=== PATIENT | male | born 1940 | race African-American/Black ===

== ENCOUNTER 2017-07-31 01:08 | Inpatient (IN) ==
[2017-07-31] MEDS ORDERED: methylPREDNISolone SOD SUC 125 MG/2 ML VIAL IV STA (01:31)
[2017-07-31] MEDS ORDERED: ALBUTEROL/IPRATROPIUM 3 ML NEB RESP TX STA (01:31)
[2017-07-31] MEDS ORDERED: methylPREDNISolone SOD SUC 125 MG/2 ML VIAL ONE (02:00)
[2017-07-31 03:21] LABS: Basophils % 0.4 % (0.0-0.8); Eosinophils # 0.1 10*3/uL (0.0-0.87); Eosinophils % 1.4 % (0.00-10.9); Hematocrit 38.6 VOL% (42.0-52.0); Hemoglobin 12.1 GM/DL (14.0-18.0); Immature Granulocytes % 0.4 %; Immature Granulocytes Absolute 0.02 #; Lymphocytes # 0.7 10*3/uL (1.4-4.0); Lymphocytes % 13.2 % (21.2-54.2); Mean Corpuscular HGB Conc 31.3 GM/DL (32-36); Mean Corpuscular Hemoglobin 27 PG (27-34); Mean Corpuscular Volume 86.9 FL (87-102); Mean Platelet Volume 9.4 FL (9.6-12.0); Monocytes # 0.3 10*3/uL (0.11-0.8); Monocytes % 5.9 % (1.7-12.7); Neutrophils # 3.9 10*3/uL (1.4-7.4); Neutrophils % 78.7 % (38.7-73.9); Platelet Count 267 T/CUMM (130-400); Red Blood Count 4.44 MC/CUMM (3.8-5.5); Red Cell Distribution Width 13.8 % (9.3-17.3); White Blood Count 4.9 T/CUMM (4-12)
[2017-07-31 03:42] LABS: Alanine Aminotransferase 28 U/L (16-61); Albumin 3.3 G/DL (3.4-5.0); Alkaline Phosphatase 137 U/L (45-117); Aspartate Amino Transferase 35 U/L (0-37); Bilirubin,Total < 0.39 MG/DL (0.2-1.0); Blood Urea Nitrogen 15 MG/DL (7-18); Calcium 9.2 MG/DL (8.5-10.1); Glucose 92 MG/DL (74-106); Osmolality,Calculated 277.5 MOS/KG (273-304); Potassium 4.5 MMOL/L (3.5-5.1); Sodium 139 MMOL/L (136-145); Troponin I Only 0.026 NG/ML (0.00-0.045)
[2017-07-31] MEDS ORDERED: SODIUM CHLORIDE 0.9% 500 ML IV ONE (06:23)
[2017-07-31] MEDS ORDERED: MORPHINE 2 MG/1 ML SYRINGE IV PRN (06:23)
[2017-07-31] MEDS ORDERED: ONDANSETRON 4 MG/2 ML VIAL IV PRN (06:23)
[2017-07-31] MEDS ORDERED: ALBUTEROL/IPRATROPIUM 3 ML NEB RESP TX PRN (06:23)
[2017-07-31] MEDS ORDERED: FUROSEMIDE 20 MG/2 ML VIAL IV ONE (06:23)
[2017-07-31] MEDS: ALBUTEROL/IPRATROPIUM 3 ML NEB RESP TX SCH ×4 (07:06→21:09)
[2017-07-31] MEDS: DONEPEZIL 10 MG TABLET PO SCH ×2 (08:51→09:02)
[2017-07-31] MEDS: MEGESTROL 400 MG/10 ML UDCUP PO SCH ×3 (08:51→22:22)
[2017-07-31] MEDS: TORSEMIDE 20 MG TABLET PO SCH ×2 (08:51→09:02)
[2017-07-31] MEDS: MAGNESIUM OXIDE 400 MG TABLET PO SCH ×2 (08:51→09:02)
[2017-07-31] MEDS: PANTOPRAZOLE 40 MG TABLET PO SCH ×2 (08:51→08:55)
[2017-07-31] MEDS: DOCUSATE SODIUM 100 MG CAPSULE PO SCH ×4 (08:51→22:25)
[2017-07-31] MEDS: SODIUM CHLORIDE 0.9% 1,000 ML IV SCH ×2 (08:53→22:22)
[2017-07-31] MEDS: ENOXAPARIN 40 MG/0.4 ML SYRINGE SUBCUT SCH (08:53)
[2017-07-31] MEDS: methylPREDNISolone SOD SUC 40 MG/1 ML VIAL IV SCH (12:40)
[2017-08-01] MEDS: ALBUTEROL/IPRATROPIUM 3 ML NEB RESP TX SCH ×4 (00:31→11:39)
[2017-08-01] MEDS: methylPREDNISolone SOD SUC 40 MG/1 ML VIAL IV SCH ×2 (01:11→11:50)
[2017-08-01] MEDS: ENOXAPARIN 40 MG/0.4 ML SYRINGE SUBCUT SCH (08:05)
[2017-08-01] MEDS: MEGESTROL 400 MG/10 ML UDCUP PO SCH (08:05)
[2017-08-01] MEDS: MAGNESIUM OXIDE 400 MG TABLET PO SCH (08:06)
[2017-08-01] MEDS: DONEPEZIL 10 MG TABLET PO SCH ×2 (08:06→08:25)
[2017-08-01] MEDS: PANTOPRAZOLE 40 MG TABLET PO SCH ×2 (08:06→08:25)
[2017-08-01] MEDS: DOCUSATE SODIUM 100 MG CAPSULE PO SCH ×2 (08:06→08:24)
[2017-08-01] MEDS: TORSEMIDE 20 MG TABLET PO SCH (08:06)
[2017-08-01 11:57] VITALS: BP 112/63
== END 2017-08-01 13:00 | DRG 192 ==
LOC: EDUNIT# → EDBD → N.ED 01:08 → N.EDINP 05:28 → N.TELES 06:23 → N.2E 19:50
PROVIDERS: ADMIT Internal Medicine Geriatric Medicine; ATTEND Internal Medicine Geriatric Medicine

== ENCOUNTER 2018-09-19 16:03 | Inpatient (IN) ==
[2018-09-19] MEDS ORDERED: methylPREDNISolone SOD SUC 125 MG/2 ML VIAL ONE (16:32)
[2018-09-19] MEDS ORDERED: methylPREDNISolone SOD SUC 125 MG/2 ML VIAL IV STA (16:44)
[2018-09-19] MEDS ORDERED: cefTRIAXone 1,000 MG in SODIUM CHLORIDE 0.9% 100 ML IV STA (16:44)
[2018-09-19] MEDS ORDERED: SODIUM CHLORIDE 0.9% 500 ML IV STA (16:44)
[2018-09-19] MEDS ORDERED: ONDANSETRON 4 MG/2 ML VIAL IV STA (16:44)
[2018-09-19 16:53] LABS: ABG Base Excess 1.8 MMOL/L (-2.5-2.5); ABG HCO3 25.6 MMOL/L (20-26); ABG Oxygen Saturation 80.7 % (95-100); ABG PH 7.294 (7.35-7.45); ABG PO2 52.2 MM HG (80-95)
[2018-09-19] MEDS ORDERED: ALBUTEROL NEB SOLN 5 MG/ML 20 ML/BOTTLE RESP TX SCH (17:00)
[2018-09-19 17:23] LABS: Basophils # 0.1 10*3/uL (0.0-0.2); Basophils % 0.3 % (0.0-0.8); Eosinophils # 0.1 10*3/uL (0.0-0.87); Eosinophils % 0.6 % (0.00-10.9); Hematocrit 42.9 VOL% (42.0-52.0); Immature Granulocytes Absolute 0.16 #; Lymphocytes # 3.5 10*3/uL (1.4-4.0); Lymphocytes % 22.5 % (21.2-54.2); Mean Corpuscular HGB Conc 30.3 GM/DL (32-36); Mean Corpuscular Hemoglobin 27 PG (27-34); Mean Corpuscular Volume 88.8 FL (87-102); Mean Platelet Volume 8.9 FL (9.6-12.0); Monocytes # 0.8 10*3/uL (0.11-0.8); Monocytes % 5.4 % (1.7-12.7); Neutrophils % 70.2 % (38.7-73.9); Platelet Count 416 T/CUMM (130-400); Red Blood Count 4.83 MC/CUMM (3.8-5.5); Red Cell Distribution Width 13.1 % (9.3-17.3); White Blood Count 15.7 T/CUMM (4-12)
[2018-09-19 17:35] LABS: PT Patient Result 11.1 SECS
[2018-09-19] MEDS ORDERED: ENOXAPARIN 100 MG/ML SYRINGE SUBCUT STA (17:36)
[2018-09-19] MEDS ORDERED: ONDANSETRON 4 MG/2 ML VIAL IV PRN (18:01)
[2018-09-19] MEDS ORDERED: ALBUTEROL/IPRATROPIUM 3 ML NEB RESP TX PRN (18:01)
[2018-09-19 18:09] LABS: Alanine Aminotransferase 10 U/L (16-61); Albumin 3.1 G/DL (3.4-5.0); Alkaline Phosphatase 124 U/L (45-117); Aspartate Amino Transferase 25 U/L (0-37); Bilirubin,Total < 0.39 MG/DL (0.2-1.0); Blood Urea Nitrogen 32 MG/DL (7-18); Calcium 9.7 MG/DL (8.5-10.1); Glucose 221 MG/DL (74-106); Osmolality,Calculated 286.8 MOS/KG (273-304); Potassium 3.2 MMOL/L (3.5-5.1); Sodium 137 MMOL/L (136-145); Total Protein 9.8 G/DL (6.4-8.3)
[2018-09-19] MEDS ORDERED: POTASSIUM CHLORIDE 20 MEQ TABLET PO PRN (18:15)
[2018-09-19] MEDS ORDERED: GLUCAGON 1 MG VIAL IM PRN (18:20)
[2018-09-19] MEDS ORDERED: DEXTROSE 50% 25 GM/50 ML VIAL IV PRN (18:20)
[2018-09-19 18:22] LABS: ABG Base Excess 0.7 MMOL/L (-2.5-2.5); ABG HCO3 24.9 MMOL/L (20-26); ABG Oxygen Saturation 90.9 % (95-100); ABG PCO2 56.7 MM HG (35-48); ABG PH 7.305 (7.35-7.45); ABG PO2 69.6 MM HG (80-95); ABG TCO2 25.4 MMOL/L (23-27)
[2018-09-19] MEDS ORDERED: ENOXAPARIN 40 MG/0.4 ML SYRINGE SUBCUT SCH (18:30)
[2018-09-19] MEDS ORDERED: SODIUM CHLORIDE 0.9% 1,000 ML IV ONE (19:09)
[2018-09-19] MEDS: ALBUTEROL/IPRATROPIUM 3 ML NEB RESP TX SCH (19:57)
[2018-09-19] MEDS ORDERED: LEVOFLOXACIN INJ 750 MG in PREMIX 1 EACH IV SCH (20:00)
[2018-09-19] MEDS: FLUTICASONE/SALMETEROL 250-50 DISKUS 14 DOSE INH SCH (20:59)
[2018-09-19] MEDS: ENOXAPARIN 60 MG/0.6 ML SYRINGE SUBCUT SCH (21:00)
[2018-09-19] MEDS: traZODone 50 MG TABLET PO SCH (21:00)
[2018-09-19] MEDS: SODIUM CHLORIDE 0.9% 1,000 ML IV SCH (21:01)
[2018-09-19] MEDS: MIRTAZAPINE 15 MG TABLET PO SCH (21:01)
[2018-09-19] MEDS: INSULIN REGULAR 100 UNIT/ML SUBCUT SCH (21:01)
[2018-09-19] MEDS: methylPREDNISolone SOD SUC 40 MG/1 ML VIAL IV SCH (21:02)
[2018-09-19] MEDS ORDERED: POTASSIUM CHLORIDE 20 MEQ/15 ML UDCUP PER TUBE PRN (22:24)
[2018-09-19 22:31] LABS: Apearance,Urine CLOUDY (Clear); Bilirubin,Urine Negative (Negative); Blood, Urine Negative (Negative); Glucose,Urine (UA) Negative (Negative); Hyaline Casts,Urine 1 /LPF (0-3); Ketones,Urine Negative (Negative); Nitrite,Urine Negative (Negative); Protein,Urine Negative; Urine Color Yellow (Yellow); Urine Specific Gravity 1.009 (1.001-1.035); Urine Urobilinogen < 2.0 EU/DL (0.2-1.0); WBC,Urine 2 /HPF (0-6)
[2018-09-20] MEDS: ALBUTEROL/IPRATROPIUM 3 ML NEB RESP TX SCH ×3 (01:32→13:59)
[2018-09-20 03:51] LABS: Basophils % 0.1 % (0.0-0.8); Hematocrit 33.7 VOL% (42.0-52.0); Hemoglobin 10.3 GM/DL (14.0-18.0); Immature Granulocytes % 0.5 %; Immature Granulocytes Absolute 0.05 #; Lymphocytes % 9.3 % (21.2-54.2); Mean Corpuscular HGB Conc 30.6 GM/DL (32-36); Mean Corpuscular Hemoglobin 27 PG (27-34); Mean Corpuscular Volume 88.5 FL (87-102); Mean Platelet Volume 9.1 FL (9.6-12.0); Monocytes # 0.2 10*3/uL (0.11-0.8); Monocytes % 1.9 % (1.7-12.7); Neutrophils # 9.3 10*3/uL (1.4-7.4); Neutrophils % 88.2 % (38.7-73.9); Platelet Count 282 T/CUMM (130-400); Red Blood Count 3.81 MC/CUMM (3.8-5.5); Red Cell Distribution Width 13.2 % (9.3-17.3); White Blood Count 10.5 T/CUMM (4-12)
[2018-09-20 04:16] LABS: Calcium 8.1 MG/DL (8.5-10.1); Osmolality,Calculated 283.4 MOS/KG (273-304); Potassium 4.3 MMOL/L (3.5-5.1); Thyroid Stimulating Hormone 0.225 uIU/ml (0.358-3.74)
[2018-09-20 04:45] LABS: Platelet Estimate Normal; Polychromasia Few
[2018-09-20] MEDS: CARBOXYMETHYLCELLULOSE 1% OPH SOLN BOTH EYES SCH ×2 (05:43→10:06)
[2018-09-20] MEDS: SODIUM CHLORIDE 0.9% 1,000 ML IV SCH ×5 (05:52→23:41)
[2018-09-20] MEDS: methylPREDNISolone SOD SUC 40 MG/1 ML VIAL IV SCH ×2 (05:52→13:31)
[2018-09-20] MEDS ORDERED: PANTOPRAZOLE 20 MG TABLET PO SCH (09:00)
[2018-09-20] MEDS: INSULIN REGULAR 100 UNIT/ML SUBCUT SCH ×4 (09:35→20:42)
[2018-09-20] MEDS: RIVASTIGMINE 4.6 MG/24 HR PATCH TRANSDERM SCH (10:03)
[2018-09-20] MEDS: TORSEMIDE 20 MG TABLET PO SCH (10:03)
[2018-09-20] MEDS: traZODone 50 MG TABLET PO SCH ×2 (10:03→20:41)
[2018-09-20] MEDS: MULTIVITAMIN (CENTRUM) TABLET PO SCH (10:04)
[2018-09-20] MEDS: ENOXAPARIN 60 MG/0.6 ML SYRINGE SUBCUT SCH (10:05)
[2018-09-20] MEDS: SERTRALINE 25 MG TABLET PO SCH (10:05)
[2018-09-20] MEDS: DONEPEZIL 10 MG TABLET PO SCH (10:05)
[2018-09-20] MEDS: PANTOPRAZOLE 40 MG TABLET PO SCH (10:05)
[2018-09-20] MEDS: MAGNESIUM OXIDE 400 MG TABLET PO SCH (10:05)
[2018-09-20] MEDS: FLUTICASONE/SALMETEROL 250-50 DISKUS 14 DOSE INH SCH ×2 (10:06→20:41)
[2018-09-20] MEDS ORDERED: ENOXAPARIN 40 MG/0.4 ML SYRINGE SUBCUT SCH (17:30)
[2018-09-20] MEDS: MIRTAZAPINE 15 MG TABLET PO SCH (20:42)
[2018-09-21] MEDS: methylPREDNISolone SOD SUC 40 MG/1 ML VIAL IV SCH ×3 (02:26→14:58)
[2018-09-21 05:10] LABS: Basophils % 0.1 % (0.0-0.8); Hematocrit 28.6 VOL% (42.0-52.0); Hemoglobin 8.5 GM/DL (14.0-18.0); Immature Granulocytes % 0.9 %; Immature Granulocytes Absolute 0.07 #; Lymphocytes # 0.8 10*3/uL (1.4-4.0); Lymphocytes % 9.9 % (21.2-54.2); Mean Corpuscular HGB Conc 29.7 GM/DL (32-36); Mean Corpuscular Hemoglobin 27 PG (27-34); Mean Corpuscular Volume 89.7 FL (87-102); Mean Platelet Volume 9.6 FL (9.6-12.0); Monocytes # 0.4 10*3/uL (0.11-0.8); Monocytes % 4.3 % (1.7-12.7); Neutrophils # 6.9 10*3/uL (1.4-7.4); Neutrophils % 84.8 % (38.7-73.9); Platelet Count 250 T/CUMM (130-400); Red Blood Count 3.19 MC/CUMM (3.8-5.5); Red Cell Distribution Width 13.2 % (9.3-17.3); White Blood Count 8.1 T/CUMM (4-12)
[2018-09-21 05:42] LABS: Calcium 8.1 MG/DL (8.5-10.1); Osmolality,Calculated 283.3 MOS/KG (273-304); Potassium 4.3 MMOL/L (3.5-5.1)
[2018-09-21] MEDS: CARBOXYMETHYLCELLULOSE 1% OPH SOLN BOTH EYES SCH ×3 (06:14→21:11)
[2018-09-21] MEDS: SODIUM CHLORIDE 0.9% 1,000 ML IV SCH ×3 (06:14→16:33)
[2018-09-21] MEDS: INSULIN REGULAR 100 UNIT/ML SUBCUT SCH ×4 (08:00→21:06)
[2018-09-21] MEDS: FLUTICASONE/SALMETEROL 250-50 DISKUS 14 DOSE INH SCH ×2 (09:45→21:09)
[2018-09-21] MEDS: RIVASTIGMINE 4.6 MG/24 HR PATCH TRANSDERM SCH (10:16)
[2018-09-21] MEDS: traZODone 50 MG TABLET PO SCH ×2 (10:16→21:10)
[2018-09-21] MEDS: ENOXAPARIN 40 MG/0.4 ML SYRINGE SUBCUT SCH (10:16)
[2018-09-21] MEDS: TORSEMIDE 20 MG TABLET PO SCH (10:17)
[2018-09-21] MEDS: MULTIVITAMIN (CENTRUM) TABLET PO SCH (10:18)
[2018-09-21] MEDS: SERTRALINE 25 MG TABLET PO SCH (10:18)
[2018-09-21] MEDS: MAGNESIUM OXIDE 400 MG TABLET PO SCH (10:18)
[2018-09-21] MEDS: DONEPEZIL 10 MG TABLET PO SCH (10:18)
[2018-09-21] MEDS: PANTOPRAZOLE 40 MG TABLET PO SCH (10:18)
[2018-09-21] MEDS: ALBUTEROL/IPRATROPIUM 3 ML NEB RESP TX SCH ×2 (12:27→20:22)
[2018-09-21] MEDS: LEVOFLOXACIN INJ 750 MG in PREMIX 1 EACH IV SCH (14:58)
[2018-09-21] MEDS: MIRTAZAPINE 15 MG TABLET PO SCH (21:11)
[2018-09-22] MEDS: ALBUTEROL/IPRATROPIUM 3 ML NEB RESP TX SCH ×4 (00:36→19:14)
[2018-09-22] MEDS: methylPREDNISolone SOD SUC 40 MG/1 ML VIAL IV SCH ×2 (01:42→14:19)
[2018-09-22 05:25] LABS: Hematocrit 27.1 VOL% (42.0-52.0); Hemoglobin 8.3 GM/DL (14.0-18.0); Immature Granulocytes % 1.2 %; Immature Granulocytes Absolute 0.09 #; Lymphocytes # 0.5 10*3/uL (1.4-4.0); Lymphocytes % 7.1 % (21.2-54.2); Mean Corpuscular HGB Conc 30.6 GM/DL (32-36); Mean Corpuscular Hemoglobin 27 PG (27-34); Mean Corpuscular Volume 87.7 FL (87-102); Mean Platelet Volume 9.5 FL (9.6-12.0); Monocytes # 0.2 10*3/uL (0.11-0.8); Neutrophils # 6.8 10*3/uL (1.4-7.4); Neutrophils % 88.7 % (38.7-73.9); Platelet Count 234 T/CUMM (130-400); Red Blood Count 3.09 MC/CUMM (3.8-5.5); Red Cell Distribution Width 13.3 % (9.3-17.3); White Blood Count 7.6 T/CUMM (4-12)
[2018-09-22 05:50] LABS: Osmolality,Calculated 280.4 MOS/KG (273-304); Potassium 3.7 MMOL/L (3.5-5.1)
[2018-09-22] MEDS ORDERED: MAGNESIUM SULF RIDER 2 GM in PREMIX 1 EACH IV ONE (08:11)
[2018-09-22] MEDS: INSULIN REGULAR 100 UNIT/ML SUBCUT SCH ×4 (09:22→21:06)
[2018-09-22] MEDS: ENOXAPARIN 40 MG/0.4 ML SYRINGE SUBCUT SCH (09:23)
[2018-09-22] MEDS: SERTRALINE 25 MG TABLET PO SCH (09:24)
[2018-09-22] MEDS: MAGNESIUM OXIDE 400 MG TABLET PO SCH (09:24)
[2018-09-22] MEDS: traZODone 50 MG TABLET PO SCH ×2 (09:24→21:10)
[2018-09-22] MEDS: MULTIVITAMIN (CENTRUM) TABLET PO SCH (09:24)
[2018-09-22] MEDS: DONEPEZIL 10 MG TABLET PO SCH (09:24)
[2018-09-22] MEDS: RIVASTIGMINE 4.6 MG/24 HR PATCH TRANSDERM SCH (09:24)
[2018-09-22] MEDS: PANTOPRAZOLE 40 MG TABLET PO SCH (09:25)
[2018-09-22] MEDS: FLUTICASONE/SALMETEROL 250-50 DISKUS 14 DOSE INH SCH ×2 (09:25→21:12)
[2018-09-22] MEDS: CARBOXYMETHYLCELLULOSE 1% OPH SOLN BOTH EYES SCH ×2 (11:45→21:07)
[2018-09-22] MEDS: LEVOFLOXACIN INJ 750 MG in PREMIX 1 EACH IV SCH (14:18)
[2018-09-22] MEDS: MIRTAZAPINE 15 MG TABLET PO SCH (21:10)
[2018-09-22] MEDS: SODIUM CHLORIDE 0.9% 1,000 ML IV SCH ×2 (22:12)
[2018-09-23] MEDS: ALBUTEROL/IPRATROPIUM 3 ML NEB RESP TX SCH ×5 (00:17→23:47)
[2018-09-23] MEDS: methylPREDNISolone SOD SUC 40 MG/1 ML VIAL IV SCH ×2 (01:52→15:36)
[2018-09-23] MEDS: ENOXAPARIN 40 MG/0.4 ML SYRINGE SUBCUT SCH (09:35)
[2018-09-23] MEDS: PANTOPRAZOLE 40 MG TABLET PO SCH (09:36)
[2018-09-23] MEDS: MULTIVITAMIN (CENTRUM) TABLET PO SCH (09:36)
[2018-09-23] MEDS: MAGNESIUM OXIDE 400 MG TABLET PO SCH (09:36)
[2018-09-23] MEDS: traZODone 50 MG TABLET PO SCH ×2 (09:36→22:27)
[2018-09-23] MEDS: RIVASTIGMINE 4.6 MG/24 HR PATCH TRANSDERM SCH (09:36)
[2018-09-23] MEDS: DONEPEZIL 10 MG TABLET PO SCH (09:36)
[2018-09-23] MEDS: SERTRALINE 25 MG TABLET PO SCH (09:36)
[2018-09-23] MEDS: FLUTICASONE/SALMETEROL 250-50 DISKUS 14 DOSE INH SCH ×2 (09:40→22:28)
[2018-09-23] MEDS: INSULIN REGULAR 100 UNIT/ML SUBCUT SCH ×4 (09:40→22:26)
[2018-09-23] MEDS: CARBOXYMETHYLCELLULOSE 1% OPH SOLN BOTH EYES SCH ×2 (09:43→22:28)
[2018-09-23] MEDS: LEVOFLOXACIN INJ 750 MG in PREMIX 1 EACH IV SCH (11:29)
[2018-09-23] MEDS: MIRTAZAPINE 15 MG TABLET PO SCH (22:27)
[2018-09-24] MEDS: methylPREDNISolone SOD SUC 40 MG/1 ML VIAL IV SCH ×2 (00:52→10:00)
[2018-09-24] MEDS: ALBUTEROL/IPRATROPIUM 3 ML NEB RESP TX SCH (07:14)
[2018-09-24] MEDS: FLUTICASONE/SALMETEROL 250-50 DISKUS 14 DOSE INH SCH (09:53)
[2018-09-24] MEDS: MAGNESIUM OXIDE 400 MG TABLET PO SCH (09:53)
[2018-09-24] MEDS: INSULIN REGULAR 100 UNIT/ML SUBCUT SCH ×2 (09:53→11:45)
[2018-09-24] MEDS: DONEPEZIL 10 MG TABLET PO SCH (09:53)
[2018-09-24] MEDS: SERTRALINE 25 MG TABLET PO SCH (09:53)
[2018-09-24] MEDS: PANTOPRAZOLE 40 MG TABLET PO SCH (09:53)
[2018-09-24] MEDS: ENOXAPARIN 40 MG/0.4 ML SYRINGE SUBCUT SCH (09:53)
[2018-09-24] MEDS: MULTIVITAMIN (CENTRUM) TABLET PO SCH (09:53)
[2018-09-24] MEDS: RIVASTIGMINE 4.6 MG/24 HR PATCH TRANSDERM SCH (09:54)
[2018-09-24] MEDS: LEVOFLOXACIN INJ 750 MG in PREMIX 1 EACH IV SCH (09:54)
[2018-09-24] MEDS: traZODone 50 MG TABLET PO SCH (09:55)
[2018-09-24] MEDS: CARBOXYMETHYLCELLULOSE 1% OPH SOLN BOTH EYES SCH (10:04)
[2018-09-24] MEDS ORDERED: CARBOXYMETHYLCELLULOSE 1% OPH SOLN BOTH EYES SCH (11:00)
[2018-09-24 12:00] VITALS: BP 125/75
[2018-09-25] MEDS ORDERED: LEVOFLOXACIN 750 MG TABLET PO SCH (09:00)
[2018-09-25] MEDS ORDERED: predniSONE 20 MG TABLET PO SCH (09:00)
== END 2018-09-24 12:36 | DRG 189 ==
LOC: EDBD → EDSEX → EDUNIT# → N.ED 16:03 → N.EDINP 18:01 → SUATTDRO 18:01 → N.CC 18:45 → N.2E 09-21 13:57
PROVIDERS: ADMIT Internal Medicine; ATTEND Internal Medicine

== ENCOUNTER 2018-10-15 11:08 | Inpatient (IN) ==
[2018-10-15] MEDS ORDERED: FUROSEMIDE 100 MG/10 ML VIAL IV STA (11:37)
[2018-10-15] MEDS ORDERED: cefTRIAXone 1,000 MG in SODIUM CHLORIDE 0.9% 100 ML IV STA (11:37)
[2018-10-15] MEDS ORDERED: SODIUM CHLORIDE 0.9% 500 ML IV STA (11:37)
[2018-10-15] MEDS ORDERED: methylPREDNISolone SOD SUC 125 MG/2 ML VIAL IV STA (11:37)
[2018-10-15] MEDS ORDERED: ALBUTEROL 2.5 MG/3 ML NEB RESP TX SCH (12:00)
[2018-10-15 12:07] LABS: ABG Base Excess 3.2 MMOL/L (-2.5-2.5); ABG HCO3 31.6 MMOL/L (20-26); ABG Oxygen Saturation 84.5 % (95-100); ABG PCO2 68.5 MM HG (35-48); ABG PH 7.282 (7.35-7.45); ABG PO2 54.8 MM HG (80-95); ABG TCO2 33.7 MMOL/L (23-27)
[2018-10-15 13:16] LABS: Bilirubin,Total 0.4 MG/DL (0.2-1.0); Calcium 9.4 MG/DL (8.5-10.1); Osmolality,Calculated 286.3 MOS/KG (273-304); Potassium 4.7 MMOL/L (3.5-5.1); Total Protein 8.2 G/DL (6.4-8.3)
[2018-10-15] MEDS ORDERED: SODIUM CHLORIDE 0.9% 1,000 ML IV STA (14:14)
[2018-10-15 14:21] LABS: Basophils % 0.4 % (0.0-0.8); Eosinophils % 0.1 % (0.00-10.9); Hematocrit 40.9 VOL% (42.0-52.0); Hemoglobin 11.9 GM/DL (14.0-18.0); Immature Granulocytes % 0.7 %; Immature Granulocytes Absolute 0.05 #; Lymphocytes # 0.6 10*3/uL (1.4-4.0); Lymphocytes % 7.6 % (21.2-54.2); Mean Corpuscular HGB Conc 29.1 GM/DL (32-36); Mean Corpuscular Hemoglobin 26 PG (27-34); Mean Corpuscular Volume 90.9 FL (87-102); Mean Platelet Volume 9.4 FL (9.6-12.0); Monocytes # 0.8 10*3/uL (0.11-0.8); Monocytes % 10.8 % (1.7-12.7); Neutrophils # 6.2 10*3/uL (1.4-7.4); Neutrophils % 80.4 % (38.7-73.9); Platelet Count 320 T/CUMM (130-400); Red Cell Distribution Width 14.6 % (9.3-17.3); White Blood Count 7.7 T/CUMM (4-12)
[2018-10-15] MEDS ORDERED: ENOXAPARIN 100 MG/ML SYRINGE SUBCUT STA (14:22)
[2018-10-15 14:27] LABS: Apearance,Urine CLEAR (Clear); Bacteria,Urine Occasional /HPF (Few); Bilirubin,Urine Negative (Negative); Blood, Urine Negative (Negative); Glucose,Urine (UA) Negative (Negative); Hyaline Casts,Urine 3 /LPF (0-3); Ketones,Urine Negative (Negative); Nitrite,Urine Negative (Negative); Protein,Urine Negative; RBC,Urine 1 /HPF (0-4); Urine Color Colorless (Yellow); Urine Specific Gravity 1.005 (1.001-1.035); Urine Urobilinogen < 2.0 EU/DL (0.2-1.0)
[2018-10-15] MEDS: PIPERACILLIN/TAZOBACTAM 3,375 MG in SODIUM CHLORIDE 0.9% 100 ML IV SCH ×2 (14:27→21:31)
[2018-10-15] MEDS ORDERED: DOCUSATE SODIUM 100 MG CAPSULE PO PRN (14:37)
[2018-10-15] MEDS ORDERED: ONDANSETRON 4 MG/2 ML VIAL IV PRN (14:37)
[2018-10-15] MEDS ORDERED: ALBUTEROL 2.5 MG/3 ML NEB RESP TX PRN (14:37)
[2018-10-15 14:43] LABS: Band Neutrophils 7 % (0-10); Lymphocytes 5 % (20-55); Segmented Neutrophils 77 % (50-85); Total Cells Counted 100
[2018-10-15 14:44] LABS: Platelet Estimate Adequate
[2018-10-15] MEDS ORDERED: ENOXAPARIN 40 MG/0.4 ML SYRINGE SUBCUT SCH (15:00)
[2018-10-15] MEDS ORDERED: DEXTROSE 50% 25 GM/50 ML SYRINGE IV PRN (15:46)
[2018-10-15] MEDS ORDERED: GLUCAGON 1 MG VIAL IM PRN (15:46)
[2018-10-15] MEDS: PANTOPRAZOLE 40 MG VIAL IV SCH (17:27)
[2018-10-15] MEDS: INSULIN LISPRO 100 UNIT/ML SUBCUT SCH ×2 (17:28→21:28)
[2018-10-15] MEDS: SODIUM CHLORIDE 0.45% 1,000 ML IV SCH (17:28)
[2018-10-15] MEDS: ALBUTEROL/IPRATROPIUM 3 ML NEB RESP TX SCH (19:02)
[2018-10-15] MEDS: methylPREDNISolone SOD SUC 40 MG/1 ML VIAL IV SCH (21:24)
[2018-10-15] MEDS: MIRTAZAPINE 15 MG TABLET PO SCH (21:27)
[2018-10-15] MEDS: FLUTICASONE/SALMETEROL 250-50 DISKUS 14 DOSE INH SCH (21:30)
[2018-10-15] MEDS: CARBOXYMETHYLCELLULOSE 1% OPH SOLN BOTH EYES SCH (22:30)
[2018-10-16] MEDS: ALBUTEROL/IPRATROPIUM 3 ML NEB RESP TX SCH ×4 (00:57→19:39)
[2018-10-16 03:47] LABS: Basophils % 0.1 % (0.0-0.8); Immature Granulocytes % 0.7 %; Immature Granulocytes Absolute 0.05 #; Lymphocytes % 14.4 % (21.2-54.2); Mean Corpuscular HGB Conc 29.4 GM/DL (32-36); Mean Corpuscular Hemoglobin 26 PG (27-34); Mean Corpuscular Volume 88.5 FL (87-102); Mean Platelet Volume 9.3 FL (9.6-12.0); Monocytes # 0.2 10*3/uL (0.11-0.8); Neutrophils # 5.5 10*3/uL (1.4-7.4); Neutrophils % 81.8 % (38.7-73.9); Platelet Count 285 T/CUMM (130-400); Red Blood Count 3.84 MC/CUMM (3.8-5.5); Red Cell Distribution Width 14.6 % (9.3-17.3); White Blood Count 6.7 T/CUMM (4-12)
[2018-10-16 04:05] LABS: Albumin 2.3 G/DL (3.4-5.0); Bilirubin,Total 0.5 MG/DL (0.2-1.0); Calcium 8.8 MG/DL (8.5-10.1); Potassium 3.9 MMOL/L (3.5-5.1); Total Protein 7.2 G/DL (6.4-8.3)
[2018-10-16 04:13] LABS: Band Neutrophils 3 % (0-10); Hypochromasia 1+; Lymphocytes 16 % (20-55); Platelet Estimate Adequate; Segmented Neutrophils 77 % (50-85); Total Cells Counted 100
[2018-10-16 04:35] LABS: ABG Base Excess 4.4 MMOL/L (-2.5-2.5); ABG HCO3 28.3 MMOL/L (20-26); ABG Oxygen Saturation 97.2 % (95-100); ABG PCO2 52.5 MM HG (35-48); ABG PH 7.374 (7.35-7.45); ABG PO2 91.4 MM HG (80-95); ABG TCO2 27.8 MMOL/L (23-27); Allen Test Positive; Pt O2 Delivery Device Other
[2018-10-16] MEDS: methylPREDNISolone SOD SUC 40 MG/1 ML VIAL IV SCH ×3 (05:26→21:40)
[2018-10-16] MEDS: PIPERACILLIN/TAZOBACTAM 3,375 MG in SODIUM CHLORIDE 0.9% 100 ML IV SCH ×3 (05:30→21:43)
[2018-10-16] MEDS: SODIUM CHLORIDE 0.45% 1,000 ML IV SCH ×3 (06:38→21:39)
[2018-10-16] MEDS: INSULIN LISPRO 100 UNIT/ML SUBCUT SCH ×4 (08:18→21:43)
[2018-10-16] MEDS: TORSEMIDE 20 MG TABLET PO SCH (10:04)
[2018-10-16] MEDS: SERTRALINE 25 MG TABLET PO SCH (10:06)
[2018-10-16] MEDS: DONEPEZIL 10 MG TABLET PO SCH (10:06)
[2018-10-16] MEDS: MAGNESIUM OXIDE 400 MG TABLET PO SCH (10:06)
[2018-10-16] MEDS: MULTIVITAMIN (CENTRUM) TABLET PO SCH (10:07)
[2018-10-16] MEDS: RIVASTIGMINE 4.6 MG/24 HR PATCH TRANSDERM SCH (10:07)
[2018-10-16] MEDS: CARBOXYMETHYLCELLULOSE 1% OPH SOLN BOTH EYES SCH ×2 (10:08→21:43)
[2018-10-16] MEDS: FLUTICASONE/SALMETEROL 250-50 DISKUS 14 DOSE INH SCH ×2 (10:08→21:40)
[2018-10-16] MEDS: PANTOPRAZOLE 40 MG VIAL IV SCH (14:11)
[2018-10-16] MEDS ORDERED: ENOXAPARIN 40 MG/0.4 ML SYRINGE SUBCUT SCH (15:00)
[2018-10-16] MEDS: MIRTAZAPINE 15 MG TABLET PO SCH (21:41)
[2018-10-17] MEDS: ALBUTEROL/IPRATROPIUM 3 ML NEB RESP TX SCH ×3 (01:26→13:15)
[2018-10-17] MEDS: methylPREDNISolone SOD SUC 40 MG/1 ML VIAL IV SCH (05:58)
[2018-10-17] MEDS: PIPERACILLIN/TAZOBACTAM 3,375 MG in SODIUM CHLORIDE 0.9% 100 ML IV SCH (05:58)
[2018-10-17] MEDS: INSULIN LISPRO 100 UNIT/ML SUBCUT SCH ×2 (09:20→11:41)
[2018-10-17] MEDS: MAGNESIUM OXIDE 400 MG TABLET PO SCH (09:59)
[2018-10-17] MEDS: FLUTICASONE/SALMETEROL 250-50 DISKUS 14 DOSE INH SCH (09:59)
[2018-10-17] MEDS: SERTRALINE 25 MG TABLET PO SCH (09:59)
[2018-10-17] MEDS: TORSEMIDE 20 MG TABLET PO SCH (09:59)
[2018-10-17] MEDS: RIVASTIGMINE 4.6 MG/24 HR PATCH TRANSDERM SCH (10:01)
[2018-10-17] MEDS: MULTIVITAMIN (CENTRUM) TABLET PO SCH (10:01)
[2018-10-17] MEDS: DONEPEZIL 10 MG TABLET PO SCH (10:01)
[2018-10-17] MEDS: CARBOXYMETHYLCELLULOSE 1% OPH SOLN BOTH EYES SCH (10:07)
[2018-10-17] MEDS: SODIUM CHLORIDE 0.45% 1,000 ML IV SCH ×2 (10:14→10:41)
[2018-10-17 13:45] VITALS: BP 90/48
[2018-10-17] MEDS ORDERED: CYPROHEPTADINE 4 MG TABLET PO SCH (21:00)
[2018-10-17] MEDS ORDERED: DOXYCYCLINE HYCLATE 100 MG CAPSULE PO SCH (21:00)
[2018-10-18] MEDS ORDERED: ROFLUMILAST 500 MCG TABLET PO SCH (09:00)
[2018-10-18] MEDS ORDERED: predniSONE 20 MG TABLET PO SCH (09:00)
== END 2018-10-17 16:00 | DRG 190 ==
LOC: EDUNIT# → N.ED 11:08 → SUATTDRO 14:37 → N.EDINP 14:37 → N.CC 15:30
PROVIDERS: ADMIT Internal Medicine; ATTEND Hospitalist

== ENCOUNTER 2018-11-16 01:55 | Inpatient (IN) ==
[2018-11-16 03:04] LABS: Immature Granulocytes % 0.3 %; Immature Granulocytes Absolute 0.02 #; Mean Corpuscular HGB Conc 29.5 GM/DL (32-36); Red Cell Distribution Width 16.8 % (9.3-17.3)
[2018-11-16 03:10] LABS: Albumin 2.8 G/DL (3.4-5.0); Bilirubin,Total 0.4 MG/DL (0.2-1.0); Calcium 9.1 MG/DL (8.5-10.1); Osmolality,Calculated 282.3 MOS/KG (273-304); PT Patient Result 10.6 SECS; Total Protein 7.3 G/DL (6.4-8.3)
[2018-11-16] MEDS ORDERED: SODIUM CHLORIDE 0.9% 1,000 ML IV STA (03:12)
[2018-11-16] MEDS ORDERED: methylPREDNISolone SOD SUC 125 MG/2 ML VIAL IV STA (03:22)
[2018-11-16] MEDS ORDERED: ALBUTEROL/IPRATROPIUM 3 ML NEB RESP TX STA (03:22)
[2018-11-16] MEDS ORDERED: VANCOMYCIN INJ 1,000 MG in SODIUM CHLORIDE 0.9% 250 ML IV STA ×2 (03:22→03:27)
[2018-11-16] MEDS ORDERED: CEFEPIME 1,000 MG in SODIUM CHLORIDE 0.9% 100 ML IV STA (03:23)
[2018-11-16] MEDS ORDERED: SODIUM CHLORIDE 0.9% 2,000 ML IV STA (03:23)
[2018-11-16 03:27] LABS: Basophils % 0.4 % (0.0-0.8); Hematocrit 42.7 VOL% (42.0-52.0); Hemoglobin 12.6 GM/DL (14.0-18.0); Lymphocytes # 0.3 10*3/uL (1.4-4.0); Lymphocytes % 4.5 % (21.2-54.2); Mean Corpuscular Hemoglobin 26 PG (27-34); Monocytes # 0.2 10*3/uL (0.11-0.8); Monocytes % 3.1 % (1.7-12.7); Neutrophils # 6.9 10*3/uL (1.4-7.4); Neutrophils % 91.7 % (38.7-73.9); Platelet Count 326 T/CUMM (130-400); White Blood Count 7.5 T/CUMM (4-12)
[2018-11-16 04:32] LABS: Band Neutrophils 9 % (0-10); Lymphocytes 6 % (20-55); Metamyelocytes 1 %; Platelet Estimate Normal; Segmented Neutrophils 81 % (50-85); Total Cells Counted 100
[2018-11-16] MEDS ORDERED: ONDANSETRON 4 MG/2 ML VIAL IV PRN (04:49)
[2018-11-16] MEDS ORDERED: ALBUTEROL 2.5 MG/3 ML NEB RESP TX PRN (04:49)
[2018-11-16] MEDS ORDERED: LEVALBUTEROL 0.63 MG/3 ML NEB RESP TX PRN (05:01)
[2018-11-16] MEDS ORDERED: ONDANSETRON ODT 4 MG TABLET PO PRN (05:02)
[2018-11-16] MEDS ORDERED: DOCUSATE SODIUM 100 MG CAPSULE PO PRN (05:02)
[2018-11-16] MEDS ORDERED: FUROSEMIDE 40 MG/4 ML VIAL ONE (06:37)
[2018-11-16] MEDS ORDERED: FUROSEMIDE 40 MG/4 ML VIAL IV ONE (06:38)
[2018-11-16] MEDS: ENOXAPARIN 40 MG/0.4 ML SYRINGE SUBCUT SCH (06:40)
[2018-11-16] MEDS: PANTOPRAZOLE 40 MG VIAL IV SCH (06:40)
[2018-11-16] MEDS: MEROPENEM 1,000 MG in SODIUM CHLORIDE 0.9% 100 ML IV SCH ×3 (06:41→20:46)
[2018-11-16] MEDS: LEVOFLOXACIN INJ 750 MG in PREMIX 1 EACH IV SCH (06:41)
[2018-11-16] MEDS: LEVALBUTEROL 1.25 MG/3 ML NEB RESP TX SCH ×3 (06:56→19:35)
[2018-11-16 08:14] LABS: ABG Base Excess 6.7 MMOL/L (-2.5-2.5); ABG HCO3 31.8 MMOL/L (20-26); ABG Oxygen Saturation 97.9 % (95-100); ABG PCO2 47.9 MM HG (35-48); ABG PO2 105.7 MM HG (80-95); ABG TCO2 33.3 MMOL/L (23-27); Allen Test Positive
[2018-11-16] MEDS ORDERED: ETOMIDATE 20 MG/10 ML VIAL IV ONE ×2 (08:35)
[2018-11-16] MEDS ORDERED: SUCCINYLCHOLINE 200 MG/10 ML VIAL ONE (08:36)
[2018-11-16] MEDS ORDERED: SUCCINYLCHOLINE 200 MG/10 ML VIAL IV ONE (08:38)
[2018-11-16] MEDS ORDERED: PROPOFOL 1,000 MG/100 ML BOTTLE IV ONE (08:57)
[2018-11-16] MEDS: NOREPINEPHRINE 8 MG in SODIUM CHLORIDE 0.9% 234 ML IV PRN ×2 (09:00→16:37)
[2018-11-16] MEDS ORDERED: LACTATED RINGERS 1,000 ML IV ONE (09:00)
[2018-11-16] MEDS: PROPOFOL 1,000 MG/100 ML BOTTLE IV SCH (09:00)
[2018-11-16] MEDS ORDERED: TORSEMIDE 20 MG TABLET PO SCH (09:00)
[2018-11-16] MEDS ORDERED: NOREPINEPHRINE 4 MG/4 ML VIAL IV ONE (09:48)
[2018-11-16 10:19] LABS: Allen Test Positive; Pt O2 Delivery Device Ventilator
[2018-11-16 10:20] LABS: ABG Base Excess 1.4 MMOL/L (-2.5-2.5); ABG HCO3 25.7 MMOL/L (20-26); ABG PCO2 40.6 MM HG (35-48); ABG PH 7.415 (7.35-7.45); ABG TCO2 23.9 MMOL/L (23-27)
[2018-11-16 13:42] LABS: Apearance,Urine CLOUDY (Clear); Bilirubin,Urine Negative (Negative); Blood, Urine Small mg/dL (Negative); Glucose,Urine (UA) Negative (Negative); Hyaline Casts,Urine 33 /LPF (0-3); Ketones,Urine 5 mg/dL (Negative); Mucus,Urine Occasional /LPF (Occasional); Nitrite,Urine Negative (Negative); Protein,Urine Negative; RBC,Urine 1 /HPF (0-4); Squamous Epithelial Cell,Urine Occasional /HPF (0-10); Urine Color Yellow (Yellow); Urine Specific Gravity 1.009 (1.001-1.035); Urine Urobilinogen < 2.0 EU/DL (0.2-1.0); WBC,Urine 1 /HPF (0-6)
[2018-11-16] MEDS: FLUTICASONE/SALMETEROL 250-50 DISKUS 14 DOSE INH SCH ×2 (14:07→20:56)
[2018-11-16] MEDS: DONEPEZIL 10 MG TABLET PO SCH (14:08)
[2018-11-16] MEDS: ROFLUMILAST 500 MCG TABLET PO SCH (14:08)
[2018-11-16] MEDS: MULTIVITAMIN (CENTRUM) TABLET PO SCH (14:08)
[2018-11-16] MEDS: MAGNESIUM OXIDE 400 MG TABLET PO SCH (14:09)
[2018-11-16] MEDS: CARBOXYMETHYLCELLULOSE 1% OPH SOLN BOTH EYES SCH ×2 (14:10→20:46)
[2018-11-16] MEDS: CYPROHEPTADINE 4 MG TABLET PO SCH ×2 (14:10→20:46)
[2018-11-16] MEDS: SERTRALINE 25 MG TABLET PO SCH (14:11)
[2018-11-16] MEDS: methylPREDNISolone SOD SUC 40 MG/1 ML VIAL IV SCH ×2 (14:38→20:45)
[2018-11-16] MEDS: RIVASTIGMINE 4.6 MG/24 HR PATCH TRANSDERM SCH (14:41)
[2018-11-16] MEDS ORDERED: PHENYLEPHRINE DRIP 40 MG/250 ML PREMIX IV PRN (18:28)
[2018-11-16] MEDS: MIRTAZAPINE 15 MG TABLET PO SCH (20:46)
[2018-11-17] MEDS: LEVALBUTEROL 1.25 MG/3 ML NEB RESP TX SCH ×4 (00:45→19:10)
[2018-11-17] MEDS: NOREPINEPHRINE 8 MG in SODIUM CHLORIDE 0.9% 234 ML IV PRN ×3 (01:50→22:55)
[2018-11-17] MEDS ORDERED: SODIUM CHLORIDE 0.45% 1,000 ML IV SCH (04:30)
[2018-11-17] MEDS: PANTOPRAZOLE 40 MG VIAL IV SCH (04:31)
[2018-11-17] MEDS: ENOXAPARIN 40 MG/0.4 ML SYRINGE SUBCUT SCH (04:31)
[2018-11-17] MEDS: methylPREDNISolone SOD SUC 40 MG/1 ML VIAL IV SCH ×3 (04:31→21:09)
[2018-11-17] MEDS: MEROPENEM 1,000 MG in SODIUM CHLORIDE 0.9% 100 ML IV SCH ×3 (04:32→21:09)
[2018-11-17 05:03] LABS: ABG Base Excess 3.9 MMOL/L (-2.5-2.5); ABG HCO3 27.9 MMOL/L (20-26); ABG Oxygen Saturation 99.6 % (95-100); ABG PCO2 39.1 MM HG (35-48); ABG PH 7.462 (7.35-7.45); ABG TCO2 25.5 MMOL/L (23-27); Allen Test Positive; Pt O2 Delivery Device Ventilator
[2018-11-17 06:03] LABS: Basophils # 0.1 10*3/uL (0.0-0.2); Basophils % 0.6 % (0.0-0.8); Hematocrit 29.5 VOL% (42.0-52.0); Hemoglobin 8.9 GM/DL (14.0-18.0); Immature Granulocytes % 3.6 %; Lymphocytes # 0.7 10*3/uL (1.4-4.0); Lymphocytes % 4.3 % (21.2-54.2); Mean Corpuscular HGB Conc 30.2 GM/DL (32-36); Mean Corpuscular Hemoglobin 27 PG (27-34); Mean Corpuscular Volume 88.6 FL (87-102); Mean Platelet Volume 9.7 FL (9.6-12.0); Monocytes # 0.9 10*3/uL (0.11-0.8); Monocytes % 5.4 % (1.7-12.7); Neutrophils # 14.3 10*3/uL (1.4-7.4); Neutrophils % 86.1 % (38.7-73.9); Platelet Count 261 T/CUMM (130-400); Red Blood Count 3.33 MC/CUMM (3.8-5.5); Red Cell Distribution Width 17.1 % (9.3-17.3); White Blood Count 16.6 T/CUMM (4-12)
[2018-11-17 06:14] LABS: Albumin 1.7 G/DL (3.4-5.0); Bilirubin,Total 0.4 MG/DL (0.2-1.0); Calcium 8.6 MG/DL (8.5-10.1); Osmolality,Calculated 290.7 MOS/KG (273-304); Potassium 3.4 MMOL/L (3.5-5.1); Total Protein 5.8 G/DL (6.4-8.3)
[2018-11-17] MEDS: LEVOFLOXACIN INJ 750 MG in PREMIX 1 EACH IV SCH (06:35)
[2018-11-17 06:41] LABS: Basophils # 0.1 10*3/uL (0.0-0.2); Basophils % 0.8 % (0.0-0.8); Hematocrit 29.1 VOL% (42.0-52.0); Hemoglobin 8.9 GM/DL (14.0-18.0); Immature Granulocytes % 2.2 %; Immature Granulocytes Absolute 0.36 #; Lymphocytes # 0.6 10*3/uL (1.4-4.0); Lymphocytes % 3.6 % (21.2-54.2); Mean Corpuscular HGB Conc 30.6 GM/DL (32-36); Mean Corpuscular Hemoglobin 27 PG (27-34); Mean Corpuscular Volume 87.9 FL (87-102); Mean Platelet Volume 9.3 FL (9.6-12.0); Monocytes # 0.8 10*3/uL (0.11-0.8); Monocytes % 4.8 % (1.7-12.7); Neutrophils # 14.7 10*3/uL (1.4-7.4); Neutrophils % 88.6 % (38.7-73.9); Platelet Count 259 T/CUMM (130-400); Red Blood Count 3.31 MC/CUMM (3.8-5.5); Red Cell Distribution Width 17.1 % (9.3-17.3); White Blood Count 16.6 T/CUMM (4-12)
[2018-11-17 06:43] LABS: Anisocytosis Slight; Band Neutrophils 58 % (0-10); Lymphocytes 4 % (20-55); Macrocytosis Slight; Platelet Estimate Normal; Segmented Neutrophils 37 % (50-85); Total Cells Counted 100
[2018-11-17 07:01] LABS: Calcium 8.5 MG/DL (8.5-10.1); Osmolality,Calculated 290.7 MOS/KG (273-304); Potassium 3.4 MMOL/L (3.5-5.1)
[2018-11-17 07:05] LABS: Band Neutrophils 44 % (0-10); Lymphocytes 2 % (20-55); Nucleated Red Blood Cells 1 (0-5); Platelet Estimate Normal; Segmented Neutrophils 51 % (50-85); Total Cells Counted 100
[2018-11-17 07:06] LABS: Anisocytosis Slight; Macrocytosis Slight
[2018-11-17] MEDS: SERTRALINE 25 MG TABLET PO SCH (08:24)
[2018-11-17] MEDS: ROFLUMILAST 500 MCG TABLET PO SCH (08:25)
[2018-11-17] MEDS: CYPROHEPTADINE 4 MG TABLET PO SCH ×2 (08:25→21:08)
[2018-11-17] MEDS: DONEPEZIL 10 MG TABLET PO SCH (08:25)
[2018-11-17] MEDS: RIVASTIGMINE 4.6 MG/24 HR PATCH TRANSDERM SCH (08:26)
[2018-11-17] MEDS: MULTIVITAMIN (CENTRUM) TABLET PO SCH (08:26)
[2018-11-17] MEDS: MAGNESIUM OXIDE 400 MG TABLET PO SCH (08:26)
[2018-11-17] MEDS: CARBOXYMETHYLCELLULOSE 1% OPH SOLN BOTH EYES SCH ×2 (08:27→21:45)
[2018-11-17] MEDS: FLUTICASONE/SALMETEROL 250-50 DISKUS 14 DOSE INH SCH ×2 (08:42→21:39)
[2018-11-17] MEDS: LACTATED RINGERS 1,000 ML IV SCH ×3 (08:49→20:10)
[2018-11-17] MEDS: PROPOFOL 1,000 MG/100 ML BOTTLE IV SCH ×2 (10:12→19:45)
[2018-11-17] MEDS ORDERED: LACTATED RINGERS 500 ML IV ONE (11:11)
[2018-11-17] MEDS ORDERED: POTASSIUM CHLORIDE 20 MEQ/15 ML UDCUP PO ONE (11:18)
[2018-11-17] MEDS: MIRTAZAPINE 15 MG TABLET PO SCH (21:09)
[2018-11-18] MEDS: LEVALBUTEROL 1.25 MG/3 ML NEB RESP TX SCH ×4 (01:00→19:38)
[2018-11-18] MEDS: LACTATED RINGERS 1,000 ML IV SCH ×4 (02:04→23:45)
[2018-11-18] MEDS: PANTOPRAZOLE 40 MG VIAL IV SCH (04:35)
[2018-11-18] MEDS: ENOXAPARIN 40 MG/0.4 ML SYRINGE SUBCUT SCH (04:35)
[2018-11-18] MEDS: methylPREDNISolone SOD SUC 40 MG/1 ML VIAL IV SCH ×3 (04:35→20:57)
[2018-11-18 04:44] LABS: ABG Base Excess 5.6 MMOL/L (-2.5-2.5); ABG HCO3 29.1 MMOL/L (20-26); ABG Oxygen Saturation 96.8 % (95-100); ABG PCO2 37.8 MM HG (35-48); ABG PH 7.504 (7.35-7.45); ABG PO2 88.2 MM HG (80-95); ABG TCO2 30.2 MMOL/L (23-27); Allen Test Positive; Pt O2 Delivery Device Ventilator
[2018-11-18] MEDS: MEROPENEM 1,000 MG in SODIUM CHLORIDE 0.9% 100 ML IV SCH ×3 (05:11→20:57)
[2018-11-18 05:55] LABS: Hematocrit 26.8 VOL% (42.0-52.0); Hemoglobin 8.1 GM/DL (14.0-18.0); Mean Corpuscular HGB Conc 30.2 GM/DL (32-36); Mean Corpuscular Hemoglobin 26 PG (27-34); Mean Corpuscular Volume 86.7 FL (87-102); Platelet Count 242 T/CUMM (130-400); Red Blood Count 3.09 MC/CUMM (3.8-5.5); Red Cell Distribution Width 17.2 % (9.3-17.3); White Blood Count 17.1 T/CUMM (4-12)
[2018-11-18 05:56] LABS: Basophils # 0.1 10*3/uL (0.0-0.2); Basophils % 0.4 % (0.0-0.8); Immature Granulocytes % 0.5 %; Immature Granulocytes Absolute 0.09 #; Lymphocytes # 0.5 10*3/uL (1.4-4.0); Monocytes # 0.6 10*3/uL (0.11-0.8); Monocytes % 3.6 % (1.7-12.7); NRBC # 0.03 10*3/uL; Neutrophils # 15.8 10*3/uL (1.4-7.4); Neutrophils % 92.5 % (38.7-73.9)
[2018-11-18 06:15] LABS: Calcium 8.4 MG/DL (8.5-10.1); Osmolality,Calculated 292.7 MOS/KG (273-304); Potassium 3.4 MMOL/L (3.5-5.1)
[2018-11-18 07:11] LABS: Anisocytosis 1+; Band Neutrophils 23 % (0-10); Hypochromasia Slight; Lymphocytes 1 % (20-55); Platelet Estimate Normal; Segmented Neutrophils 72 % (50-85); Total Cells Counted 100
[2018-11-18] MEDS: LEVOFLOXACIN INJ 750 MG in PREMIX 1 EACH IV SCH (07:18)
[2018-11-18] MEDS ORDERED: POTASSIUM CHLORIDE 20 MEQ/15 ML UDCUP PER TUBE PRN (07:54)
[2018-11-18] MEDS ORDERED: DEXTROSE 50% 25 GM/50 ML SYRINGE IV PRN (07:56)
[2018-11-18] MEDS ORDERED: GLUCAGON 1 MG VIAL IM PRN (07:56)
[2018-11-18] MEDS: CYPROHEPTADINE 4 MG TABLET PO SCH ×2 (09:02→20:57)
[2018-11-18] MEDS: ROFLUMILAST 500 MCG TABLET PO SCH (09:02)
[2018-11-18] MEDS: DONEPEZIL 10 MG TABLET PO SCH (09:02)
[2018-11-18] MEDS: RIVASTIGMINE 4.6 MG/24 HR PATCH TRANSDERM SCH (09:02)
[2018-11-18] MEDS: SERTRALINE 25 MG TABLET PO SCH (09:02)
[2018-11-18] MEDS: CARBOXYMETHYLCELLULOSE 1% OPH SOLN BOTH EYES SCH ×2 (09:02→20:57)
[2018-11-18] MEDS: MULTIVITAMIN (CENTRUM) TABLET PO SCH (09:02)
[2018-11-18] MEDS: MAGNESIUM OXIDE 400 MG TABLET PO SCH (09:02)
[2018-11-18] MEDS: FLUTICASONE/SALMETEROL 250-50 DISKUS 14 DOSE INH SCH ×2 (09:07→20:57)
[2018-11-18] MEDS ORDERED: LORazepam 2 MG/1 ML VIAL ONE (09:35)
[2018-11-18] MEDS ORDERED: LORazepam 2 MG/1 ML VIAL IV ONE (09:54)
[2018-11-18] MEDS: INSULIN LISPRO 100 UNIT/ML SUBCUT SCH ×2 (15:09→18:53)
[2018-11-18] MEDS: VANCOMYCIN INJ 750 MG in SODIUM CHLORIDE 0.9% 250 ML IV SCH (15:10)
[2018-11-18] MEDS: PROPOFOL 1,000 MG/100 ML BOTTLE IV SCH (15:17)
[2018-11-18] MEDS: MIRTAZAPINE 15 MG TABLET PO SCH (20:57)
[2018-11-19] MEDS: LEVALBUTEROL 1.25 MG/3 ML NEB RESP TX SCH ×4 (00:31→19:42)
[2018-11-19] MEDS: INSULIN LISPRO 100 UNIT/ML SUBCUT SCH ×4 (01:10→17:56)
[2018-11-19] MEDS: LACTATED RINGERS 1,000 ML IV SCH ×4 (01:22→20:00)
[2018-11-19 04:54] LABS: ABG Base Excess 4.5 MMOL/L (-2.5-2.5); ABG HCO3 28.5 MMOL/L (20-26); ABG Oxygen Saturation 98.7 % (95-100); ABG PCO2 39.7 MM HG (35-48); ABG PH 7.465 (7.35-7.45); ABG TCO2 26.6 MMOL/L (23-27); Allen Test Positive; Pt O2 Delivery Device Ventilator
[2018-11-19] MEDS: ENOXAPARIN 40 MG/0.4 ML SYRINGE SUBCUT SCH (04:55)
[2018-11-19] MEDS: methylPREDNISolone SOD SUC 40 MG/1 ML VIAL IV SCH ×3 (04:56→21:02)
[2018-11-19] MEDS: PANTOPRAZOLE 40 MG VIAL IV SCH (05:02)
[2018-11-19] MEDS: MEROPENEM 1,000 MG in SODIUM CHLORIDE 0.9% 100 ML IV SCH ×3 (05:02→22:15)
[2018-11-19 05:45] LABS: Basophils % 0.2 % (0.0-0.8); Hematocrit 24.6 VOL% (42.0-52.0); Hemoglobin 7.4 GM/DL (14.0-18.0); Immature Granulocytes % 0.6 %; Immature Granulocytes Absolute 0.07 #; Lymphocytes # 0.7 10*3/uL (1.4-4.0); Lymphocytes % 6.5 % (21.2-54.2); Mean Corpuscular HGB Conc 30.1 GM/DL (32-36); Mean Corpuscular Hemoglobin 26 PG (27-34); Mean Corpuscular Volume 87.5 FL (87-102); Monocytes # 0.6 10*3/uL (0.11-0.8); NRBC # 0.02 10*3/uL; Neutrophils % 87.7 % (38.7-73.9); Platelet Count 200 T/CUMM (130-400); Red Blood Count 2.81 MC/CUMM (3.8-5.5); Red Cell Distribution Width 17.6 % (9.3-17.3); White Blood Count 11.4 T/CUMM (4-12)
[2018-11-19 06:09] LABS: Hypochromasia 1+; Ovalocytes Slight; Platelet Estimate Adequate
[2018-11-19 06:18] LABS: Calcium 8.7 MG/DL (8.5-10.1); Osmolality,Calculated 290.7 MOS/KG (273-304); Potassium 4.1 MMOL/L (3.5-5.1)
[2018-11-19 06:21] LABS: Prealbumin 9.2 MG/DL (20-40)
[2018-11-19] MEDS: LEVOFLOXACIN INJ 750 MG in PREMIX 1 EACH IV SCH (07:02)
[2018-11-19] MEDS: PROPOFOL 1,000 MG/100 ML BOTTLE IV SCH (08:00)
[2018-11-19] MEDS: FLUTICASONE/SALMETEROL 250-50 DISKUS 14 DOSE INH SCH ×2 (08:02→21:08)
[2018-11-19] MEDS: DONEPEZIL 10 MG TABLET PO SCH (08:02)
[2018-11-19] MEDS: SERTRALINE 25 MG TABLET PO SCH (08:02)
[2018-11-19] MEDS: MAGNESIUM OXIDE 400 MG TABLET PO SCH (08:03)
[2018-11-19] MEDS: RIVASTIGMINE 4.6 MG/24 HR PATCH TRANSDERM SCH (08:03)
[2018-11-19] MEDS: ROFLUMILAST 500 MCG TABLET PO SCH (08:03)
[2018-11-19] MEDS: VANCOMYCIN INJ 750 MG in SODIUM CHLORIDE 0.9% 250 ML IV SCH (08:10)
[2018-11-19] MEDS: CARBOXYMETHYLCELLULOSE 1% OPH SOLN BOTH EYES SCH ×2 (08:10→22:17)
[2018-11-19] MEDS: CYPROHEPTADINE 4 MG TABLET PO SCH (08:16)
[2018-11-19] MEDS: MULTIVITAMIN LIQUID (CENTRUM) 60 ML BOTTLE PER TUBE SCH (09:30)
[2018-11-19] MEDS ORDERED: POTASSIUM PHOSPHATE 30 MMOL in SODIUM CHLORIDE 0.9% 250 ML IV ONE (12:00)
[2018-11-19] MEDS: IBUPROFEN 100 MG/5 ML UDCUP PO PRN (13:19)
[2018-11-19] MEDS: MIRTAZAPINE 15 MG TABLET PO SCH (22:17)
[2018-11-20] MEDS: LEVALBUTEROL 1.25 MG/3 ML NEB RESP TX SCH ×2 (00:31→08:11)
[2018-11-20] MEDS: INSULIN LISPRO 100 UNIT/ML SUBCUT SCH ×4 (00:31→17:49)
[2018-11-20] MEDS: VANCOMYCIN INJ 750 MG in SODIUM CHLORIDE 0.9% 250 ML IV SCH ×2 (02:45→20:45)
[2018-11-20 04:01] LABS: Allen Test Positive; Pt O2 Delivery Device Ventilator
[2018-11-20] MEDS: methylPREDNISolone SOD SUC 40 MG/1 ML VIAL IV SCH ×3 (05:17→20:40)
[2018-11-20] MEDS: PANTOPRAZOLE 40 MG VIAL IV SCH (05:19)
[2018-11-20] MEDS: MEROPENEM 1,000 MG in SODIUM CHLORIDE 0.9% 100 ML IV SCH (05:25)
[2018-11-20] MEDS: ENOXAPARIN 40 MG/0.4 ML SYRINGE SUBCUT SCH (05:27)
[2018-11-20 05:44] LABS: Basophils % 0.2 % (0.0-0.8); Hematocrit 27.7 VOL% (42.0-52.0); Hemoglobin 8.1 GM/DL (14.0-18.0); Immature Granulocytes % 1.2 %; Immature Granulocytes Absolute 0.11 #; Lymphocytes # 1.1 10*3/uL (1.4-4.0); Lymphocytes % 12.4 % (21.2-54.2); Mean Corpuscular HGB Conc 29.2 GM/DL (32-36); Mean Corpuscular Hemoglobin 26 PG (27-34); Mean Corpuscular Volume 88.5 FL (87-102); Mean Platelet Volume 9.8 FL (9.6-12.0); Monocytes # 0.6 10*3/uL (0.11-0.8); Monocytes % 6.3 % (1.7-12.7); NRBC # 0.02 10*3/uL; Neutrophils # 7.2 10*3/uL (1.4-7.4); Neutrophils % 79.9 % (38.7-73.9); Platelet Count 186 T/CUMM (130-400); Red Blood Count 3.13 MC/CUMM (3.8-5.5); Red Cell Distribution Width 17.5 % (9.3-17.3)
[2018-11-20 05:59] LABS: Calcium 8.5 MG/DL (8.5-10.1); Osmolality,Calculated 286.1 MOS/KG (273-304); Potassium 4.1 MMOL/L (3.5-5.1)
[2018-11-20 06:11] LABS: Hypochromasia 1+; Lymphocytes 11 % (20-55); Platelet Estimate Adequate; Segmented Neutrophils 80 % (50-85); Total Cells Counted 100
[2018-11-20] MEDS: LEVOFLOXACIN INJ 750 MG in PREMIX 1 EACH IV SCH (06:15)
[2018-11-20] MEDS: LACTATED RINGERS 1,000 ML IV SCH ×2 (06:15→17:41)
[2018-11-20] MEDS: ROFLUMILAST 500 MCG TABLET PO SCH (08:05)
[2018-11-20] MEDS: SERTRALINE 25 MG TABLET PO SCH (08:06)
[2018-11-20] MEDS: RIVASTIGMINE 4.6 MG/24 HR PATCH TRANSDERM SCH (08:06)
[2018-11-20] MEDS: DONEPEZIL 10 MG TABLET PO SCH (08:06)
[2018-11-20] MEDS: MULTIVITAMIN LIQUID (CENTRUM) 60 ML BOTTLE PER TUBE SCH (08:06)
[2018-11-20] MEDS: MAGNESIUM OXIDE 400 MG TABLET PO SCH (08:06)
[2018-11-20] MEDS: FLUTICASONE/SALMETEROL 250-50 DISKUS 14 DOSE INH SCH ×2 (08:06→21:50)
[2018-11-20] MEDS: CARBOXYMETHYLCELLULOSE 1% OPH SOLN BOTH EYES SCH ×2 (08:07→21:55)
[2018-11-20] MEDS: PROPOFOL 1,000 MG/100 ML BOTTLE IV SCH (08:08)
[2018-11-20] MEDS: ceFAZolin 2,000 MG in PREMIX 1 EACH IV SCH ×2 (09:30→16:04)
[2018-11-20] MEDS: ALBUTEROL/IPRATROPIUM 3 ML NEB RESP TX SCH ×2 (12:38→20:27)
[2018-11-20] MEDS: LORazepam 1 MG TABLET PER TUBE SCH ×2 (14:23→21:55)
[2018-11-20 18:34] LABS: ABG PCO2 43.3 MM HG (35-48); ABG PH 7.427 (7.35-7.45)
[2018-11-20 18:35] LABS: ABG Base Excess 3.8 MMOL/L (-2.5-2.5); ABG HCO3 27.8 MMOL/L (20-26); ABG TCO2 26.4 MMOL/L (23-27)
[2018-11-20 18:37] LABS: ABG Oxygen Saturation 98.8 % (95-100)
[2018-11-20] MEDS: MIRTAZAPINE 15 MG TABLET PO SCH (21:55)
[2018-11-21] MEDS: ALBUTEROL/IPRATROPIUM 3 ML NEB RESP TX SCH ×5 (00:31→23:58)
[2018-11-21] MEDS: INSULIN LISPRO 100 UNIT/ML SUBCUT SCH ×5 (01:13→23:32)
[2018-11-21] MEDS: ceFAZolin 2,000 MG in PREMIX 1 EACH IV SCH ×3 (01:45→17:27)
[2018-11-21 02:57] LABS: ABG Base Excess 6.1 MMOL/L (-2.5-2.5); ABG PCO2 45.2 MM HG (35-48); ABG PH 7.443 (7.35-7.45); ABG PO2 94.7 MM HG (80-95); ABG TCO2 28.5 MMOL/L (23-27); Allen Test Positive; Pt O2 Delivery Device Ventilator
[2018-11-21] MEDS: PROPOFOL 1,000 MG/100 ML BOTTLE IV SCH ×2 (04:15→17:29)
[2018-11-21] MEDS: methylPREDNISolone SOD SUC 40 MG/1 ML VIAL IV SCH ×3 (04:55→21:33)
[2018-11-21] MEDS: PANTOPRAZOLE 40 MG VIAL IV SCH (05:00)
[2018-11-21] MEDS: LACTATED RINGERS 1,000 ML IV SCH ×2 (05:00→14:30)
[2018-11-21] MEDS: ENOXAPARIN 40 MG/0.4 ML SYRINGE SUBCUT SCH (05:02)
[2018-11-21 05:36] LABS: Basophils % 0.1 % (0.0-0.8); Hemoglobin 7.5 GM/DL (14.0-18.0); Immature Granulocytes % 3.6 %; Immature Granulocytes Absolute 0.28 #; Lymphocytes % 12.7 % (21.2-54.2); Mean Corpuscular Hemoglobin 26 PG (27-34); Mean Corpuscular Volume 87.4 FL (87-102); Mean Platelet Volume 10.7 FL (9.6-12.0); Monocytes # 0.7 10*3/uL (0.11-0.8); Monocytes % 8.8 % (1.7-12.7); NRBC # 0.04 10*3/uL; Neutrophils # 5.8 10*3/uL (1.4-7.4); Neutrophils % 74.8 % (38.7-73.9); Platelet Count 204 T/CUMM (130-400); Red Blood Count 2.86 MC/CUMM (3.8-5.5); Red Cell Distribution Width 17.2 % (9.3-17.3); White Blood Count 7.8 T/CUMM (4-12)
[2018-11-21 06:00] LABS: Hypochromasia 1+; Microcytosis 1+; Spherocytes Slight; Target Cells Slight
[2018-11-21 06:01] LABS: Platelet Estimate Normal; Polychromasia Slight
[2018-11-21 07:00] LABS: Calcium 8.3 MG/DL (8.5-10.1); Osmolality,Calculated 282.3 MOS/KG (273-304); Potassium 4.2 MMOL/L (3.5-5.1)
[2018-11-21] MEDS: FLUTICASONE/SALMETEROL 250-50 DISKUS 14 DOSE INH SCH ×2 (08:32→21:34)
[2018-11-21] MEDS ORDERED: VANCOMYCIN INJ 750 MG in SODIUM CHLORIDE 0.9% 250 ML IV SCH (09:00)
[2018-11-21] MEDS: MAGNESIUM OXIDE 400 MG TABLET PO SCH (09:17)
[2018-11-21] MEDS: DONEPEZIL 10 MG TABLET PO SCH (09:20)
[2018-11-21] MEDS: ROFLUMILAST 500 MCG TABLET PO SCH (09:21)
[2018-11-21] MEDS: RIVASTIGMINE 4.6 MG/24 HR PATCH TRANSDERM SCH (09:21)
[2018-11-21] MEDS: LORazepam 1 MG TABLET PER TUBE SCH ×3 (09:21→21:33)
[2018-11-21] MEDS: SERTRALINE 25 MG TABLET PO SCH (09:21)
[2018-11-21] MEDS: MULTIVITAMIN LIQUID (CENTRUM) 60 ML BOTTLE PER TUBE SCH (09:22)
[2018-11-21] MEDS: CARBOXYMETHYLCELLULOSE 1% OPH SOLN BOTH EYES SCH ×2 (09:24→21:33)
[2018-11-21] MEDS: MIRTAZAPINE 15 MG TABLET PO SCH (21:33)
[2018-11-22] MEDS: ceFAZolin 2,000 MG in PREMIX 1 EACH IV SCH ×3 (00:02→17:08)
[2018-11-22] MEDS: LACTATED RINGERS 1,000 ML IV SCH ×4 (00:02→20:17)
[2018-11-22] MEDS ORDERED: SODIUM CHLORIDE 0.9% 1,000 ML IV ONE (05:08)
[2018-11-22 05:09] LABS: ABG Base Excess 8.5 MMOL/L (-2.5-2.5); ABG HCO3 32.3 MMOL/L (20-26); ABG Oxygen Saturation 98.6 % (95-100); ABG PCO2 44.4 MM HG (35-48); ABG PH 7.479 (7.35-7.45); ABG TCO2 30.6 MMOL/L (23-27)
[2018-11-22 05:14] LABS: Calcium 8.4 MG/DL (8.5-10.1); Osmolality,Calculated 283.3 MOS/KG (273-304); Potassium 4.2 MMOL/L (3.5-5.1)
[2018-11-22] MEDS: PANTOPRAZOLE 40 MG VIAL IV SCH (05:32)
[2018-11-22] MEDS: ENOXAPARIN 40 MG/0.4 ML SYRINGE SUBCUT SCH (05:32)
[2018-11-22] MEDS: methylPREDNISolone SOD SUC 40 MG/1 ML VIAL IV SCH ×3 (05:32→20:28)
[2018-11-22] MEDS: PROPOFOL 1,000 MG/100 ML BOTTLE IV SCH ×2 (05:33→17:09)
[2018-11-22] MEDS: INSULIN LISPRO 100 UNIT/ML SUBCUT SCH ×3 (05:40→18:25)
[2018-11-22 05:56] LABS: Prealbumin 16.6 MG/DL (20-40)
[2018-11-22] MEDS: ALBUTEROL/IPRATROPIUM 3 ML NEB RESP TX SCH ×3 (07:00→20:16)
[2018-11-22 07:04] LABS: Basophils % 0.1 % (0.0-0.8); Eosinophils % 0.1 % (0.00-10.9); Hematocrit 25.2 VOL% (42.0-52.0); Hemoglobin 7.7 GM/DL (14.0-18.0); Immature Granulocytes % 7.4 %; Lymphocytes # 0.8 10*3/uL (1.4-4.0); Lymphocytes % 9.8 % (21.2-54.2); Mean Corpuscular HGB Conc 30.6 GM/DL (32-36); Mean Corpuscular Hemoglobin 27 PG (27-34); Mean Corpuscular Volume 86.6 FL (87-102); Mean Platelet Volume 10.3 FL (9.6-12.0); Monocytes # 0.5 10*3/uL (0.11-0.8); Monocytes % 5.6 % (1.7-12.7); Neutrophils # 6.3 10*3/uL (1.4-7.4); Platelet Count 220 T/CUMM (130-400); Red Blood Count 2.91 MC/CUMM (3.8-5.5); Red Cell Distribution Width 17.3 % (9.3-17.3); White Blood Count 8.2 T/CUMM (4-12)
[2018-11-22 07:09] LABS: Anisocytosis 1+; Band Neutrophils 3 % (0-10); Eosinophils 1 % (0-10); Lymphocytes 10 % (20-55); Platelet Estimate Normal; Segmented Neutrophils 82 % (50-85); Target Cells Few; Total Cells Counted 100
[2018-11-22 07:10] LABS: Basophilic Stippling Slight
[2018-11-22] MEDS: FLUTICASONE/SALMETEROL 250-50 DISKUS 14 DOSE INH SCH ×2 (09:08→20:30)
[2018-11-22] MEDS: ROFLUMILAST 500 MCG TABLET PO SCH (09:09)
[2018-11-22] MEDS: LORazepam 1 MG TABLET PER TUBE SCH ×3 (09:09→20:29)
[2018-11-22] MEDS: MAGNESIUM OXIDE 400 MG TABLET PO SCH (09:10)
[2018-11-22] MEDS: SERTRALINE 25 MG TABLET PO SCH (09:10)
[2018-11-22] MEDS: DONEPEZIL 10 MG TABLET PO SCH (09:10)
[2018-11-22] MEDS: RIVASTIGMINE 4.6 MG/24 HR PATCH TRANSDERM SCH (09:11)
[2018-11-22] MEDS: CARBOXYMETHYLCELLULOSE 1% OPH SOLN BOTH EYES SCH ×2 (09:11→20:30)
[2018-11-22] MEDS: MULTIVITAMIN LIQUID (CENTRUM) 60 ML BOTTLE PER TUBE SCH (09:12)
[2018-11-22] MEDS: MIRTAZAPINE 15 MG TABLET PO SCH (20:30)
[2018-11-23] MEDS: INSULIN LISPRO 100 UNIT/ML SUBCUT SCH ×4 (00:15→18:13)
[2018-11-23] MEDS: LACTATED RINGERS 1,000 ML IV SCH ×5 (00:15→22:37)
[2018-11-23] MEDS: ceFAZolin 2,000 MG in PREMIX 1 EACH IV SCH ×3 (00:15→17:10)
[2018-11-23] MEDS: ALBUTEROL/IPRATROPIUM 3 ML NEB RESP TX SCH ×4 (01:07→19:46)
[2018-11-23 04:56] LABS: ABG Base Excess 6.2 MMOL/L (-2.5-2.5); ABG HCO3 31.6 MMOL/L (20-26); ABG PCO2 48.1 MM HG (35-48); ABG PH 7.435 (7.35-7.45); ABG PO2 45.9 MM HG (80-95); Pt O2 Delivery Device Ventilator
[2018-11-23 04:57] LABS: ABG Oxygen Saturation 82.8 % (95-100)
[2018-11-23 05:31] LABS: Basophils % 0.2 % (0.0-0.8); Hematocrit 25.2 VOL% (42.0-52.0); Hemoglobin 7.7 GM/DL (14.0-18.0); Immature Granulocytes % 7.6 %; Immature Granulocytes Absolute 0.76 #; Mean Corpuscular HGB Conc 30.6 GM/DL (32-36); Mean Corpuscular Hemoglobin 26 PG (27-34); Mean Corpuscular Volume 85.7 FL (87-102); Mean Platelet Volume 10.2 FL (9.6-12.0); Monocytes # 0.4 10*3/uL (0.11-0.8); Monocytes % 3.9 % (1.7-12.7); Neutrophils # 7.9 10*3/uL (1.4-7.4); Neutrophils % 78.3 % (38.7-73.9); Platelet Count 242 T/CUMM (130-400); Red Blood Count 2.94 MC/CUMM (3.8-5.5); Red Cell Distribution Width 17.4 % (9.3-17.3)
[2018-11-23 06:04] LABS: Allen Test Positive; Pt O2 Delivery Device Ventilator
[2018-11-23 06:04] LABS: Calcium 8.4 MG/DL (8.5-10.1); Osmolality,Calculated 283.3 MOS/KG (273-304); Potassium 3.8 MMOL/L (3.5-5.1)
[2018-11-23 06:12] LABS: Eosinophils 1 % (0-10); Hypochromasia 1+; Lymphocytes 14 % (20-55); Microcytosis 1+; Myelocytes 1 %; Platelet Estimate Normal; Polychromasia Slight; Segmented Neutrophils 83 % (50-85); Target Cells Few; Total Cells Counted 100
[2018-11-23 06:14] LABS: ABG Base Excess 9.7 MMOL/L (-2.5-2.5); ABG HCO3 33.5 MMOL/L (20-26); ABG Oxygen Saturation 97.4 % (95-100); ABG PCO2 47.5 MM HG (35-48); ABG PO2 84.1 MM HG (80-95); ABG TCO2 32.3 MMOL/L (23-27)
[2018-11-23] MEDS: methylPREDNISolone SOD SUC 40 MG/1 ML VIAL IV SCH ×3 (06:23→20:30)
[2018-11-23] MEDS: PANTOPRAZOLE 40 MG VIAL IV SCH (06:26)
[2018-11-23] MEDS: ENOXAPARIN 40 MG/0.4 ML SYRINGE SUBCUT SCH (06:26)
[2018-11-23] MEDS: FLUTICASONE/SALMETEROL 250-50 DISKUS 14 DOSE INH SCH ×2 (08:31→20:35)
[2018-11-23] MEDS: ROFLUMILAST 500 MCG TABLET PO SCH (09:01)
[2018-11-23] MEDS: DONEPEZIL 10 MG TABLET PO SCH (09:02)
[2018-11-23] MEDS: RIVASTIGMINE 4.6 MG/24 HR PATCH TRANSDERM SCH (09:02)
[2018-11-23] MEDS: MAGNESIUM OXIDE 400 MG TABLET PO SCH (09:02)
[2018-11-23] MEDS: LORazepam 1 MG TABLET PER TUBE SCH ×3 (09:02→20:35)
[2018-11-23] MEDS: SERTRALINE 25 MG TABLET PO SCH (09:02)
[2018-11-23] MEDS: MULTIVITAMIN LIQUID (CENTRUM) 60 ML BOTTLE PER TUBE SCH (09:04)
[2018-11-23] MEDS: PROPOFOL 1,000 MG/100 ML BOTTLE IV SCH (09:06)
[2018-11-23] MEDS: CARBOXYMETHYLCELLULOSE 1% OPH SOLN BOTH EYES SCH ×2 (09:06→20:35)
[2018-11-23] MEDS: MIRTAZAPINE 15 MG TABLET PO SCH (20:35)
[2018-11-24] MEDS: ALBUTEROL/IPRATROPIUM 3 ML NEB RESP TX SCH ×4 (00:10→19:32)
[2018-11-24] MEDS: ceFAZolin 2,000 MG in PREMIX 1 EACH IV SCH ×3 (01:00→17:10)
[2018-11-24] MEDS: LACTATED RINGERS 1,000 ML IV SCH ×3 (01:00→20:32)
[2018-11-24] MEDS: INSULIN LISPRO 100 UNIT/ML SUBCUT SCH ×4 (01:00→17:29)
[2018-11-24] MEDS: PROPOFOL 1,000 MG/100 ML BOTTLE IV SCH ×3 (01:01→14:23)
[2018-11-24 03:35] LABS: Allen Test Positive; Pt O2 Delivery Device Ventilator
[2018-11-24 03:38] LABS: ABG Base Excess 8.9 MMOL/L (-2.5-2.5); ABG HCO3 34.3 MMOL/L (20-26); ABG Oxygen Saturation 98.1 % (95-100); ABG PCO2 52.8 MM HG (35-48); ABG PH 7.431 (7.35-7.45); ABG PO2 122.2 MM HG (80-95)
[2018-11-24 04:31] LABS: Basophils % 0.1 % (0.0-0.8); Hematocrit 24.9 VOL% (42.0-52.0); Hemoglobin 7.6 GM/DL (14.0-18.0); Immature Granulocytes % 4.6 %; Immature Granulocytes Absolute 0.52 #; Lymphocytes # 0.9 10*3/uL (1.4-4.0); Lymphocytes % 7.7 % (21.2-54.2); Mean Corpuscular HGB Conc 30.5 GM/DL (32-36); Mean Corpuscular Hemoglobin 26 PG (27-34); Mean Corpuscular Volume 85.3 FL (87-102); Mean Platelet Volume 9.8 FL (9.6-12.0); Monocytes # 0.4 10*3/uL (0.11-0.8); Monocytes % 3.4 % (1.7-12.7); Neutrophils # 9.6 10*3/uL (1.4-7.4); Neutrophils % 84.2 % (38.7-73.9); Platelet Count 263 T/CUMM (130-400); Red Blood Count 2.92 MC/CUMM (3.8-5.5); Red Cell Distribution Width 17.6 % (9.3-17.3); White Blood Count 11.3 T/CUMM (4-12)
[2018-11-24 05:02] LABS: Band Neutrophils 2 % (0-10); Lymphocytes 9 % (20-55); Platelet Estimate Normal; Segmented Neutrophils 87 % (50-85); Total Cells Counted 100
[2018-11-24 05:03] LABS: Calcium 8.1 MG/DL (8.5-10.1); Osmolality,Calculated 283.3 MOS/KG (273-304); Potassium 3.8 MMOL/L (3.5-5.1)
[2018-11-24] MEDS: methylPREDNISolone SOD SUC 40 MG/1 ML VIAL IV SCH ×3 (05:20→20:20)
[2018-11-24] MEDS: ENOXAPARIN 40 MG/0.4 ML SYRINGE SUBCUT SCH (05:24)
[2018-11-24] MEDS: PANTOPRAZOLE 40 MG VIAL IV SCH (06:20)
[2018-11-24] MEDS: LORazepam 1 MG TABLET PER TUBE SCH ×3 (08:42→20:24)
[2018-11-24] MEDS: MAGNESIUM OXIDE 400 MG TABLET PO SCH (08:42)
[2018-11-24] MEDS: DONEPEZIL 10 MG TABLET PO SCH (08:42)
[2018-11-24] MEDS: SERTRALINE 25 MG TABLET PO SCH (08:43)
[2018-11-24] MEDS: ROFLUMILAST 500 MCG TABLET PO SCH (08:43)
[2018-11-24] MEDS: RIVASTIGMINE 4.6 MG/24 HR PATCH TRANSDERM SCH (08:43)
[2018-11-24] MEDS: CARBOXYMETHYLCELLULOSE 1% OPH SOLN BOTH EYES SCH ×2 (08:44→20:24)
[2018-11-24] MEDS: FLUTICASONE/SALMETEROL 250-50 DISKUS 14 DOSE INH SCH ×2 (08:45→20:24)
[2018-11-24] MEDS: MULTIVITAMIN LIQUID (CENTRUM) 60 ML BOTTLE PER TUBE SCH (11:02)
[2018-11-24] MEDS: IBUPROFEN 100 MG/5 ML UDCUP PO PRN (18:20)
[2018-11-24] MEDS: MIRTAZAPINE 15 MG TABLET PO SCH (20:24)
[2018-11-25] MEDS: ALBUTEROL/IPRATROPIUM 3 ML NEB RESP TX SCH ×4 (00:26→18:58)
[2018-11-25] MEDS: LACTATED RINGERS 1,000 ML IV SCH ×4 (03:03→17:36)
[2018-11-25] MEDS: INSULIN LISPRO 100 UNIT/ML SUBCUT SCH ×4 (03:04→17:43)
[2018-11-25] MEDS: ceFAZolin 2,000 MG in PREMIX 1 EACH IV SCH ×3 (03:16→17:24)
[2018-11-25] MEDS: methylPREDNISolone SOD SUC 40 MG/1 ML VIAL IV SCH ×3 (03:17→20:10)
[2018-11-25 03:50] LABS: ABG HCO3 32.7 MMOL/L (20-26); ABG Oxygen Saturation 97.9 % (95-100); ABG PCO2 59.1 MM HG (35-48); ABG PH 7.388 (7.35-7.45); Allen Test Positive; Pt O2 Delivery Device Ventilator
[2018-11-25] MEDS: ENOXAPARIN 40 MG/0.4 ML SYRINGE SUBCUT SCH (05:30)
[2018-11-25 05:53] LABS: Basophils % 0.1 % (0.0-0.8); Hematocrit 27.6 VOL% (42.0-52.0); Hemoglobin 8.3 GM/DL (14.0-18.0); Immature Granulocytes % 2.7 %; Immature Granulocytes Absolute 0.35 #; Lymphocytes # 0.5 10*3/uL (1.4-4.0); Lymphocytes % 3.8 % (21.2-54.2); Mean Corpuscular HGB Conc 30.1 GM/DL (32-36); Mean Corpuscular Hemoglobin 26 PG (27-34); Mean Corpuscular Volume 87.3 FL (87-102); Mean Platelet Volume 9.8 FL (9.6-12.0); Monocytes # 0.3 10*3/uL (0.11-0.8); Monocytes % 2.5 % (1.7-12.7); Neutrophils # 11.8 10*3/uL (1.4-7.4); Neutrophils % 90.9 % (38.7-73.9); Platelet Count 294 T/CUMM (130-400); Red Blood Count 3.16 MC/CUMM (3.8-5.5); Red Cell Distribution Width 17.9 % (9.3-17.3); White Blood Count 12.9 T/CUMM (4-12)
[2018-11-25 05:59] LABS: Calcium 8.4 MG/DL (8.5-10.1); Osmolality,Calculated 284.3 MOS/KG (273-304); Potassium 4.2 MMOL/L (3.5-5.1)
[2018-11-25 06:15] LABS: Anisocytosis 1+; Band Neutrophils 1 % (0-10); Hypochromasia 1+; Lymphocytes 2 % (20-55); Microcytosis 1+; Myelocytes 2 %; Polychromasia Slight; Segmented Neutrophils 94 % (50-85); Target Cells Slight; Total Cells Counted 100
[2018-11-25] MEDS: PANTOPRAZOLE 40 MG VIAL IV SCH (06:15)
[2018-11-25 06:16] LABS: Platelet Estimate Normal
[2018-11-25] MEDS: PROPOFOL 1,000 MG/100 ML BOTTLE IV SCH ×3 (07:07→22:11)
[2018-11-25] MEDS: FLUTICASONE/SALMETEROL 250-50 DISKUS 14 DOSE INH SCH ×2 (09:03→20:15)
[2018-11-25] MEDS: DONEPEZIL 10 MG TABLET PO SCH (09:04)
[2018-11-25] MEDS: MAGNESIUM OXIDE 400 MG TABLET PO SCH (09:04)
[2018-11-25] MEDS: RIVASTIGMINE 4.6 MG/24 HR PATCH TRANSDERM SCH (09:05)
[2018-11-25] MEDS: SERTRALINE 25 MG TABLET PO SCH (09:05)
[2018-11-25] MEDS: ROFLUMILAST 500 MCG TABLET PO SCH (09:05)
[2018-11-25] MEDS: LORazepam 1 MG TABLET PER TUBE SCH ×3 (09:05→20:14)
[2018-11-25] MEDS: MULTIVITAMIN LIQUID (CENTRUM) 60 ML BOTTLE PER TUBE SCH (09:06)
[2018-11-25] MEDS: CARBOXYMETHYLCELLULOSE 1% OPH SOLN BOTH EYES SCH ×2 (09:06→20:14)
[2018-11-25] MEDS: MIRTAZAPINE 15 MG TABLET PO SCH (20:14)
[2018-11-26] MEDS ORDERED: LORazepam 2 MG/1 ML VIAL IV ONE (00:49)
[2018-11-26] MEDS: INSULIN LISPRO 100 UNIT/ML SUBCUT SCH ×4 (01:08→18:26)
[2018-11-26] MEDS: ceFAZolin 2,000 MG in PREMIX 1 EACH IV SCH ×3 (01:09→17:50)
[2018-11-26] MEDS: ALBUTEROL/IPRATROPIUM 3 ML NEB RESP TX SCH ×5 (01:17→23:46)
[2018-11-26 03:45] LABS: ABG Base Excess 10.9 MMOL/L (-2.5-2.5); ABG HCO3 34.6 MMOL/L (20-26); ABG Oxygen Saturation 95.9 % (95-100); ABG PCO2 54.8 MM HG (35-48); ABG PH 7.435 (7.35-7.45); ABG PO2 76.8 MM HG (80-95); ABG TCO2 34.2 MMOL/L (23-27); Allen Test Positive
[2018-11-26] MEDS: methylPREDNISolone SOD SUC 40 MG/1 ML VIAL IV SCH ×3 (05:51→20:23)
[2018-11-26] MEDS: ENOXAPARIN 40 MG/0.4 ML SYRINGE SUBCUT SCH (05:52)
[2018-11-26] MEDS: PANTOPRAZOLE 40 MG VIAL IV SCH (05:52)
[2018-11-26] MEDS: LACTATED RINGERS 1,000 ML IV SCH ×2 (05:55→16:51)
[2018-11-26 08:08] LABS: Basophils % 0.2 % (0.0-0.8); Hematocrit 27.9 VOL% (42.0-52.0); Hemoglobin 8.4 GM/DL (14.0-18.0); Immature Granulocytes % 1.7 %; Immature Granulocytes Absolute 0.21 #; Lymphocytes # 0.7 10*3/uL (1.4-4.0); Lymphocytes % 5.5 % (21.2-54.2); Mean Corpuscular HGB Conc 30.1 GM/DL (32-36); Mean Corpuscular Hemoglobin 27 PG (27-34); Mean Corpuscular Volume 89.1 FL (87-102); Mean Platelet Volume 9.6 FL (9.6-12.0); Monocytes # 0.2 10*3/uL (0.11-0.8); Monocytes % 1.9 % (1.7-12.7); Neutrophils # 11.3 10*3/uL (1.4-7.4); Neutrophils % 90.7 % (38.7-73.9); Platelet Count 289 T/CUMM (130-400); Red Blood Count 3.13 MC/CUMM (3.8-5.5); Red Cell Distribution Width 18.5 % (9.3-17.3); White Blood Count 12.5 T/CUMM (4-12)
[2018-11-26 08:17] LABS: Calcium 8.3 MG/DL (8.5-10.1); Osmolality,Calculated 284.3 MOS/KG (273-304)
[2018-11-26 08:33] LABS: Prealbumin 30.7 MG/DL (20-40)
[2018-11-26 08:46] LABS: Hypochromasia 1+; Lymphocytes 4 % (20-55); Platelet Estimate Adequate; Segmented Neutrophils 94 % (50-85); Total Cells Counted 100
[2018-11-26 08:47] LABS: Microcytosis 1+
[2018-11-26] MEDS: FLUTICASONE/SALMETEROL 250-50 DISKUS 14 DOSE INH SCH ×2 (09:14→20:24)
[2018-11-26] MEDS: ROFLUMILAST 500 MCG TABLET PO SCH (09:33)
[2018-11-26] MEDS: SERTRALINE 25 MG TABLET PO SCH (09:33)
[2018-11-26] MEDS: MAGNESIUM OXIDE 400 MG TABLET PO SCH (09:33)
[2018-11-26] MEDS: DONEPEZIL 10 MG TABLET PO SCH (09:33)
[2018-11-26] MEDS: RIVASTIGMINE 4.6 MG/24 HR PATCH TRANSDERM SCH (09:33)
[2018-11-26] MEDS: MULTIVITAMIN LIQUID (CENTRUM) 60 ML BOTTLE PER TUBE SCH (09:33)
[2018-11-26] MEDS: LORazepam 1 MG TABLET PER TUBE SCH ×3 (09:33→20:24)
[2018-11-26] MEDS: CARBOXYMETHYLCELLULOSE 1% OPH SOLN BOTH EYES SCH ×2 (09:35→20:24)
[2018-11-26] MEDS: PROPOFOL 1,000 MG/100 ML BOTTLE IV SCH ×2 (11:53→12:20)
[2018-11-26] MEDS: MIRTAZAPINE 15 MG TABLET PO SCH (20:24)
[2018-11-27] MEDS: INSULIN LISPRO 100 UNIT/ML SUBCUT SCH ×4 (00:34→18:48)
[2018-11-27] MEDS: ceFAZolin 2,000 MG in PREMIX 1 EACH IV SCH ×3 (00:58→17:13)
[2018-11-27] MEDS: LACTATED RINGERS 1,000 ML IV SCH ×3 (03:52→20:45)
[2018-11-27] MEDS: PANTOPRAZOLE 40 MG VIAL IV SCH (04:07)
[2018-11-27] MEDS: methylPREDNISolone SOD SUC 40 MG/1 ML VIAL IV SCH ×3 (04:07→20:23)
[2018-11-27] MEDS: ENOXAPARIN 40 MG/0.4 ML SYRINGE SUBCUT SCH (04:07)
[2018-11-27 04:17] LABS: Allen Test Positive; Pt O2 Delivery Device Ventilator
[2018-11-27 04:18] LABS: ABG Base Excess 14.6 MMOL/L (-2.5-2.5); ABG HCO3 39.4 MMOL/L (20-26); ABG PCO2 52.7 MM HG (35-48); ABG PH 7.491 (7.35-7.45); ABG PO2 84.5 MM HG (80-95)
[2018-11-27] MEDS: PROPOFOL 1,000 MG/100 ML BOTTLE IV SCH ×2 (06:03→17:11)
[2018-11-27] MEDS: ALBUTEROL/IPRATROPIUM 3 ML NEB RESP TX SCH ×3 (07:09→19:20)
[2018-11-27] MEDS: MAGNESIUM OXIDE 400 MG TABLET PO SCH (09:04)
[2018-11-27] MEDS: CARBOXYMETHYLCELLULOSE 1% OPH SOLN BOTH EYES SCH ×2 (09:04→20:26)
[2018-11-27] MEDS: DONEPEZIL 10 MG TABLET PO SCH (09:04)
[2018-11-27] MEDS: RIVASTIGMINE 4.6 MG/24 HR PATCH TRANSDERM SCH (09:04)
[2018-11-27] MEDS: ROFLUMILAST 500 MCG TABLET PO SCH (09:04)
[2018-11-27] MEDS: SERTRALINE 25 MG TABLET PO SCH (09:04)
[2018-11-27] MEDS: MULTIVITAMIN LIQUID (CENTRUM) 60 ML BOTTLE PER TUBE SCH (09:05)
[2018-11-27] MEDS: FLUTICASONE/SALMETEROL 250-50 DISKUS 14 DOSE INH SCH ×2 (09:05→20:24)
[2018-11-27] MEDS: LORazepam 1 MG TABLET PER TUBE SCH ×3 (09:05→20:23)
[2018-11-27] MEDS: MIRTAZAPINE 15 MG TABLET PO SCH (20:23)
[2018-11-28] MEDS: INSULIN LISPRO 100 UNIT/ML SUBCUT SCH ×4 (00:25→18:20)
[2018-11-28] MEDS: ALBUTEROL/IPRATROPIUM 3 ML NEB RESP TX SCH ×4 (01:19→20:04)
[2018-11-28] MEDS: ceFAZolin 2,000 MG in PREMIX 1 EACH IV SCH ×3 (01:35→17:20)
[2018-11-28] MEDS: LACTATED RINGERS 1,000 ML IV SCH ×5 (01:44→23:36)
[2018-11-28] MEDS: PROPOFOL 1,000 MG/100 ML BOTTLE IV SCH ×2 (03:57→13:07)
[2018-11-28 04:47] LABS: ABG Base Excess 10.2 MMOL/L (-2.5-2.5); ABG Oxygen Saturation 97.9 % (95-100); ABG PCO2 52.2 MM HG (35-48); ABG PH 7.443 (7.35-7.45); ABG PO2 92.3 MM HG (80-95); ABG TCO2 33.5 MMOL/L (23-27); Pt O2 Delivery Device Ventilator
[2018-11-28] MEDS: methylPREDNISolone SOD SUC 40 MG/1 ML VIAL IV SCH ×3 (04:48→20:41)
[2018-11-28] MEDS: PANTOPRAZOLE 40 MG VIAL IV SCH (04:49)
[2018-11-28] MEDS: ENOXAPARIN 40 MG/0.4 ML SYRINGE SUBCUT SCH (04:50)
[2018-11-28] MEDS: RIVASTIGMINE 4.6 MG/24 HR PATCH TRANSDERM SCH (11:36)
[2018-11-28] MEDS: SERTRALINE 25 MG TABLET PO SCH (11:37)
[2018-11-28] MEDS: ROFLUMILAST 500 MCG TABLET PO SCH (11:37)
[2018-11-28] MEDS: DONEPEZIL 10 MG TABLET PO SCH (11:37)
[2018-11-28] MEDS: MAGNESIUM OXIDE 400 MG TABLET PO SCH (11:37)
[2018-11-28] MEDS: MULTIVITAMIN LIQUID (CENTRUM) 60 ML BOTTLE PER TUBE SCH (11:41)
[2018-11-28] MEDS: CARBOXYMETHYLCELLULOSE 1% OPH SOLN BOTH EYES SCH ×2 (11:41→20:42)
[2018-11-28] MEDS: FLUTICASONE/SALMETEROL 250-50 DISKUS 14 DOSE INH SCH ×2 (11:42→20:44)
[2018-11-28] MEDS: MIRTAZAPINE 15 MG TABLET PO SCH (20:42)
[2018-11-29] MEDS: PROPOFOL 1,000 MG/100 ML BOTTLE IV SCH ×3 (00:41→10:12)
[2018-11-29] MEDS: INSULIN LISPRO 100 UNIT/ML SUBCUT SCH ×2 (00:47→06:44)
[2018-11-29] MEDS: ceFAZolin 2,000 MG in PREMIX 1 EACH IV SCH ×2 (00:47→08:41)
[2018-11-29] MEDS: ALBUTEROL/IPRATROPIUM 3 ML NEB RESP TX SCH ×2 (01:06→07:14)
[2018-11-29] MEDS: LACTATED RINGERS 1,000 ML IV SCH (02:11)
[2018-11-29 04:16] LABS: Basophils % 0.1 % (0.0-0.8); Hematocrit 26.8 VOL% (42.0-52.0); Hemoglobin 8.1 GM/DL (14.0-18.0); Immature Granulocytes % 1.1 %; Immature Granulocytes Absolute 0.14 #; Lymphocytes # 0.6 10*3/uL (1.4-4.0); Lymphocytes % 5.1 % (21.2-54.2); Mean Corpuscular HGB Conc 30.2 GM/DL (32-36); Mean Corpuscular Hemoglobin 27 PG (27-34); Mean Corpuscular Volume 88.4 FL (87-102); Mean Platelet Volume 9.7 FL (9.6-12.0); Monocytes # 0.5 10*3/uL (0.11-0.8); Monocytes % 4.3 % (1.7-12.7); Neutrophils # 10.9 10*3/uL (1.4-7.4); Neutrophils % 89.4 % (38.7-73.9); Platelet Count 309 T/CUMM (130-400); Red Blood Count 3.03 MC/CUMM (3.8-5.5); Red Cell Distribution Width 19.8 % (9.3-17.3); White Blood Count 12.2 T/CUMM (4-12)
[2018-11-29 04:34] LABS: Calcium 8.3 MG/DL (8.5-10.1); Osmolality,Calculated 285.3 MOS/KG (273-304)
[2018-11-29] MEDS: methylPREDNISolone SOD SUC 40 MG/1 ML VIAL IV SCH (04:35)
[2018-11-29] MEDS: ENOXAPARIN 40 MG/0.4 ML SYRINGE SUBCUT SCH (04:36)
[2018-11-29] MEDS: PANTOPRAZOLE 40 MG VIAL IV SCH (04:36)
[2018-11-29 04:38] LABS: Prealbumin 36.1 MG/DL (20-40)
[2018-11-29 06:41] VITALS: BP 106/58
[2018-11-29] MEDS: MAGNESIUM OXIDE 400 MG TABLET PO SCH (08:38)
[2018-11-29] MEDS: ROFLUMILAST 500 MCG TABLET PO SCH (08:38)
[2018-11-29] MEDS: MULTIVITAMIN LIQUID (CENTRUM) 60 ML BOTTLE PER TUBE SCH (08:39)
[2018-11-29] MEDS: SERTRALINE 25 MG TABLET PO SCH (08:39)
[2018-11-29] MEDS: CARBOXYMETHYLCELLULOSE 1% OPH SOLN BOTH EYES SCH (08:39)
[2018-11-29] MEDS: DONEPEZIL 10 MG TABLET PO SCH (08:39)
[2018-11-29] MEDS: FLUTICASONE/SALMETEROL 250-50 DISKUS 14 DOSE INH SCH (08:40)
[2018-11-29] MEDS: RIVASTIGMINE 4.6 MG/24 HR PATCH TRANSDERM SCH (09:00)
== END 2018-11-29 10:05 | DRG 207 ==
LOC: EDBD → EDUNIT# → N.ED 01:55 → N.EDINP 04:49 → SUATTDRO 04:49 → N.CC 05:48
PROVIDERS: ADMIT Family Medicine; ATTEND Internal Medicine Geriatric Medicine